=== PATIENT | female | born 1940 | race Caucasian/White ===

== ENCOUNTER 2017-10-24 17:04 | Emergency (ER) | payer MEDICARE ==
[2017-10-24 17:41] LABS: #Basophils 0.1 thou/uL (0.0-0.2); #Eosinphils 0.1 thou/uL (0.0-0.7); #Lymphocytes 2.1 thou/uL (1.20-3.40); #Monocytes 0.7 thou/uL (0.11-0.59); #Neutrophils 6.1 thou/uL (1.40-6.50); %Basophils 0.9 % (0.0-1.0); %Lymphocytes 23.2 % (21.0-51.0); %Monocytes 7.3 % (0.0-10.0); %Neutrophils 67.6 % (42.0-75.0); Hemoglobin 13.2 g/dL (12.0-16.0); Mean Corpuscular HGB CONC 34.7 g/dL (32.0-36.0); Mean Corpuscular Hemoglobin 32.4 pg (27.0-31.0); Mean Corpuscular Volume 93.3 fL (78.0-98.0); Mean Platelet Volume 7.1 fL (7.4-10.4); Platelet Count 215 thou/uL (130-400); RBC Distribution Width 11.5 % (11.5-14.5); Red Blood Cell (RBC) Count 4.07 mill/uL (4.20-5.40)
[2017-10-24 17:59] LABS: ALT (SGPT) 32 U/L (8-55); AST (SGOT) 30 U/L (5-34); Albumin 4.3 g/dL (3.4-4.8); Alkaline Phosphatase 69 U/L (40-150); Anion Gap 14 mmol/L (10-20); BUN (Urea Nitrogen) 23 mg/dL (9.8-20.1); Bilirubin, Total 0.4 mg/dL (0.2-1.2); Calc. Creatinine Clearance 0 mL/min (70-130); Calcium 9.3 mg/dL (7.8-10.44); Carbon Dioxide 25 mmol/L (23-31); Chloride 103 mmol/L (98-107); Estimated GFR-MDRD 62; Globulin 2.6 g/dL (2.4-3.5); Glucose 103 mg/dL (83-110); Potassium 4.7 mmol/L (3.5-5.1); Protein, Total 6.9 g/dL (6.0-8.3); Sodium 137 mmol/L (136-145)
[2017-10-24 18:03] LABS: CKMB 5.5 ng/mL (0-6.6); Troponin I Less than 0.010 ng/mL (< 0.028)
--- NOTE | 2017-10-24 18:06 | RAD ---
CHEST 1 VIEW: Date: 10/24/17 COMPARISON: 12/01/16. HISTORY: Pain. FINDINGS: Hiatal hernia is redemonstrated. Normal cardiac silhouette. Lungs and pleural spaces are clear. Chron ic changes. No consolidation or mass. No pneumothorax or osseous abnormalities. IMPRESSION: No acute cardiopulmonary process. POS: [facility]
[2017-10-24] MEDS ORDERED: Amlodipine 5 MG TAB ONE (18:10)
[2017-10-24] MEDS ORDERED: Hydrochlorothiazide 25 MG TAB PO SCH (18:15)
== END 2017-10-24 20:08 | disposition left against medical advice (07) ==
LOC: ERS 17:04
DX: R07.9 Chest pain, unspecified (principal); E78.5 Hyperlipidemia, unspecified; I10 Essential (primary) hypertension; F32.9 Major depressive disorder, single episode, unspecified; Z79.899 Other long term (current) drug therapy
CPT/HCPCS: 36415; 71045; 80053; 82553; 84484; 85025; 93005

== ENCOUNTER 2018-05-06 00:51 | Emergency (ER) | payer MEDICARE ==
[2018-05-06 01:32] LABS: #Eosinphils 0.2 thou/uL (0.0-0.7); #Lymphocytes 1.6 thou/uL (1.20-3.40); #Monocytes 0.2 thou/uL (0.11-0.59); #Neutrophils 3.7 thou/uL (1.40-6.50); %Basophils 0.6 % (0.0-1.0); %Eosinophils 3.5 % (0.0-10.0); %Lymphocytes 27.4 % (21.0-51.0); %Monocytes 4.1 % (0.0-10.0); %Neutrophils 64.4 % (42.0-75.0); Hemoglobin 11.7 g/dL (12.0-16.0); Mean Corpuscular HGB CONC 32.6 g/dL (32.0-36.0); Mean Corpuscular Hemoglobin 29.8 pg (27.0-31.0); Mean Corpuscular Volume 91.4 fL (78.0-98.0); Mean Platelet Volume 8.3 fL (7.4-10.4); Platelet Count 163 thou/uL (130-400); RBC Distribution Width 12.4 % (11.5-14.5); Red Blood Cell (RBC) Count 3.93 mill/uL (4.20-5.40); White Blood Cell (WBC) Count 5.8 thou/uL (4.8-10.8)
[2018-05-06 01:50] LABS: ALT (SGPT) 15 U/L (8-55); AST (SGOT) 24 U/L (5-34); Albumin 3.7 g/dL (3.4-4.8); Alkaline Phosphatase 60 U/L (40-150); Anion Gap 10 mmol/L (10-20); BUN (Urea Nitrogen) 16 mg/dL (9.8-20.1); Bilirubin, Total Less than 0.2 mg/dL (0.2-1.2); Calc. Creatinine Clearance 0 mL/min (70-130); Calcium 9.3 mg/dL (7.8-10.44); Carbon Dioxide 29 mmol/L (23-31); Chloride 101 mmol/L (98-107); Estimated GFR-MDRD 65; Globulin 2.2 g/dL (2.4-3.5); Glucose 200 mg/dL (83-110); Potassium 3.4 mmol/L (3.5-5.1); Protein, Total 5.9 g/dL (6.0-8.3); Sodium 137 mmol/L (136-145)
--- NOTE | 2018-05-06 08:18 | CT ---
PRELIMINARY REPORT/[facility]/EMERGENCY AFTER HOURS PROCEDURE: EXAM: CT Cervical Spine Without Contrast EXAM DATE/TIME: 05/06/2018 1:57 AM CLINICAL HISTORY: 78 years old, female; Injury or trauma; Fall; Initial encounter; Blunt trauma; Patient HX: F78 presen ts to ed S/P fall. reports he heard PT yell from the other room and found her down, supine, a nd he called ems. Ems reports initally PT only alert to person. They report hypotension 80/60, glucos e 150, normal ecg. PT was C/O pain to occiput and neck. Ems placed PT in c collar. They report pmhx o f chonic low back pain and HTN. TECHNIQUE: Axial computed tomography images of the cervical spine without intravenous contrast. COMPARISON: No relevant prior studies available. FINDINGS: Vertebrae: Prior anterior surgical fusion at C4-5. On axial CT images, no definite acute fracture is visible. Sagittal and coronal reconstructions show no fracture or post traumatic subluxation. Moderate to severe degenerative disc changes and facet joint arthritis at multiple levels. Mild, 1 -- 2 mm of anterior subluxation of C7 relative to T1. No visible fracture. Prominent facet kiana int arthritis at this level is the likely etiology. Discs/Spinal canal/Neural foramina: No definite/significant disc herniation by CT, MRI could be more sensitive if clinically indicated. Lungs: Lung apices appear essentially unremarkable. IMPRESSION: 1. No definite acute fracture or post traumatic subluxation by CT. 2. Other findings discussed above. Thank you for allowing us to participate in the care of your patient. Dictated and Authenticated by: Jayson Simon MD 05/06/2018 3:06 AM Central Time ([place] & [place]) FINAL REPORT CT CERVICAL SPINE: Date: 05/06/18 HISTORY: Fall with neck injury. FINDINGS: I agree with the preliminary report provided by [facility]. No definite acute fracture or subluxation is ev ident. ACDF is seen at C4-5 with solid osseous incorporation of interbody bone graft. There is ankylo sis of C3 to C4. Slight retrolisthesis of C5 on C6. There are laminectomy changes at C5. There is adv anced disc degenerative disease at C6-7 and C7-T1. There is slight anterior translation of C7 on T1. There is bilateral pleural parenchymal scarring. Prevertebral soft tissues are normal appearing. IMPRESSION: No acute abnormality. POS: [facility]
--- NOTE | 2018-05-06 09:45 | CT ---
PRELIMINARY REPORT/[facility]/EMERGENCY AFTER HOURS PROCEDURE: EXAM: CT Head Without Contrast EXAM DATE/TIME: 05/06/2018 1:57 AM CLINICAL HISTORY: 78 years old, female; Injury or trauma; Fall; Initial encounter; Blunt trauma (contusions or hematoma s); Consciousness not specified; Patient HX: F78 presents to ed S/P fall. reports he heard PT yell from the other room and found her down, supine, and he called ems. Ems reports initally PT only alert to person. They report hypotension 80/60, glucose 150, normal ecg. PT was C/O pain to occiput and neck. Ems placed PT in c collar. They report pmhx of chonic low back pain and HTN . TECHNIQUE: Axial computed tomography images of the head/brain without contrast. COMPARISON: No relevant prior studies available. FINDINGS: Brain: No acute intracranial hemorrhage or mass effect. There is mild, relatively symmetrical decreased attenuation in the periventricular white matter, like ly from microvascular disease. No definite acute infarct by CT. MRI could be more sensitive/specific for detection, as clinically di rected. Ventricles: Ventricle size is normal for age. Bones/joints: No definite acute skull fracture. Sinuses: Included paranasal sinuses are essentially clear. Mastoid air cells: No significant acute finding. Vasculature: Vascular calcifications are noted in the internal carotid arteries. IMPRESSION: 1. No acute intracranial bleed or mass effect. 2. Changes of microvascular disease. 3. No definite acute infarct by CT, see above. Thank you for allowing us to participate in the care of your patient. Dictated and Authenticated by: Jayson Simon MD 05/06/2018 3:01 AM Central Time ([place] & [place]) FINAL REPORT CT BRAIN WITHOUT CONTRAST: Date: 05/06/18 IMPRESSION: I agree with the preliminary report provided by [facility]. No definite acute intracranial abnormality is e vident. There is age-appropriate atrophy and mild chronic small vessel white matter ischemic change. Skull is intact. Extracranial soft tissues appear within normal limits. POS: [facility]
== END 2018-05-06 04:18 | disposition home or self-care (01) ==
LOC: ERS 00:51
DX: S06.9X9A Unspecified intracranial injury with loss of consciousness of unspecified duration, initial encounter (principal); S00.03XA Contusion of scalp, initial encounter; E78.5 Hyperlipidemia, unspecified; I10 Essential (primary) hypertension; M19.90 Unspecified osteoarthritis, unspecified site; F32.9 Major depressive disorder, single episode, unspecified; Z79.899 Other long term (current) drug therapy; W19.XXXA Unspecified fall, initial encounter
CPT/HCPCS: 70450; 72125; 80053; 85025; 93005

== ENCOUNTER 2019-07-23 15:58 | Inpatient (IN) | payer MEDICARE, OTHER ==
--- NOTE | 2019-07-23 16:56 | PDOC.FPRHP ---
- History of Present Illness Chief Complaint: Fall and SOB History of Present Illness: This is a 79 yo female with a pmh of HTN, HLD, chronic back pain who presents to the ER from an outside ER with a cc of a fall and new SOB. She states that she started feeling bad 3 days ago. She had some mild SOB as well as an occasional cough. She denies fever, chills, nausea, vomiting, or chest pain. She states the reason she presented to the ER was due to a fall she had today. She states she was going to turn something off across her house when she tripped and fell. She states she hit her head. She denies dizziness or weakness. She denies LOC. In regards to her cough, she reports some yellow sputum. She reports smoking occasionally when she was younger but reports her was a heavy smoker. She denies any recent sick contacts. Of note, her of 59 years this March and she has been feeling quite down since then. ED Course: Azithromycin 500mg Cefepime 2g NS 1L - Allergies/Adverse Reactions Allergies Allergy/AdvReac Type Severity Reaction Status Date / Time No Known Allergies Allergy Verified 07/23/19 19:12 - Home Medications Medication Instructions Recorded Confirmed Type Amlodipine Besylate [amLODIPine 2.5 mg PO DAILY 12/25/14 07/23/19 History Besylate] Aspirin [Ecotrin Low Strength] 81 mg PO DAILY 12/25/14 07/23/19 History Baclofen [Lioresal] 10 mg PO BID 12/25/14 07/23/19 History C,E,Zinc,Copper 24/Om3/Lut/Jarvis 1 cap PO DAILY 12/25/14 07/23/19 History [Ocuvite Adult 50 Plus Softgel] DULoxetine [Cymbalta] 60 mg PO DAILY 12/25/14 07/23/19 History Meloxicam [Mobic] 10 mg PO DAILY 12/25/14 07/23/19 History Multivit-Min/Iron/Folic/Lutein 1 tablet PO DAILY 12/25/14 07/23/19 History [Centrum Silver Women] Rosuvastatin [Crestor] 20 mg PO HS 12/25/14 07/23/19 History Biotin 10,000 mcg PO DAILY 01/16/15 07/23/19 History Calcium Carbonate [Tums] 500 mg PO QID PRN 01/16/15 07/23/19 History Zolpidem Tartrate 10 mg PO HS PRN 01/16/15 07/23/19 History Hydrochlorothiazide 12.5 mg PO QAM 07/10/16 07/23/19 History Loteprednol Etabonate [Lotemax 1 drop EA EYE BID 07/10/16 07/23/19 History 0.5% Ophth Gel] Propylene Glycol/PEG 400 [Systane 1 drop EA EYE BID 07/10/16 07/23/19 History Liquid Gel Eye Drops] Ca/D3/Mag/Zinc/Elis/Jackson/MgBor 1 tablet PO BID 10/26/16 07/23/19 History [Caltrate 600+D3+Minerals Chewable Tablet] Gabapentin 2 tab PO BID 10/26/16 07/23/19 History HYDROcodone Bit/APAP 10/325 [Nemo] 1 tab PO Q6H PRN #0 tab 10/28/16 07/23/19 Rx Solifenacin Succinate [VESIcare] 10 mg PO HS 07/23/19 07/24/19 History Krill/Om-3/DHA/EPA/Phospho/Ast 1 capsule PO DAILY 07/24/19 07/24/19 History [Krill Oil 500 mg Softgel] - History PMHx: HTN, HLD, chronic back pain, PSHx: Total knee replacement, 4 back surgeries, bilateral wrist surgery, hysterectomy FHx: Noncontributory Social: Denies drug or alcohol. Reports small smoking history with large second hand exposure - Review of Systems General: reports: fatigue. denies: fever/chills, weight/appetite/sleep changes , night sweats Eyes: denies: eye pain, vision changes ENT: denies: nasal congestion, rhinorrhea Respiratory: reports: cough, shortness of breath. denies: congestion, exercise intolerance Cardiovascular: denies: chest pain, palpitation, edema Gastrointestinal: denies: nausea, vomiting, diarrhea, constipation, abdominal pain, GI bleeding Genitourinary: denies: incontinence, dysuria Skin: denies: rashes, lesions, jaundice Musculoskeletal: reports: pain (Chronic back pain) Neurological: denies: numbness, syncope, weakness Psychological: reports: depression. denies: anxiety - Vital signs BP: 154/74 HR: 72 RR: 23 Tmax: 98.9 Pox: 99% on 3L nc Wt: 61 kg - Physical Exam Constitutional: NAD, awake, alert and oriented, well developed HEENT: normocephalic and atraumatic, PERRLA, EOMI, grossly normal vision, grossly normal hearing, MMM, other (pt has dry blood on her lip but no laceration is appreciated. No lesions or bruising where she reports hitting her head) Neck: trachea midline, no JVD Chest: no-tender to palpation, no lesions Heart: RRR, normal S1/S2, no murmurs/rubs/gallops, pulses present Lungs: other (Mild rhonci in bases, good air movement) Abdomen: soft, non-tender, bowel sounds present, no masses/distention Musculoskeletal: normal structure, normal tone, ROM grossly normal Neurological: CN II-XII intact Skin: capillary refill <2 seconds Heme/Lymphatic: no unusual bruising or bleeding Psychiatric: normal mood and affect, good judgment and insight FMR H&P: Results - Labs Result Diagrams: 07/24/19 05:40 07/24/19 05:40 Lab results: CBC WBC 12.4 Hgb 12.8 Hct 40.1 Plt 154 D-dimer 0.69 CMP Na 140 K 3.6 Cl 100 HCO3 28 BUN 18 Cr 0.85 Glucose 134 LA 1.1 AST/ALT 35/21 Trop 0.017 BNP 31.7 - EKG Interpretation EKG: NSR, T wave inversion V1-V3, no Qwave prolongation - Radiology Interpretation CT scan - chest Status: report reviewed by me (No PE, Infiltrates in left upper, left lower, and right lower lobes, multiple cystic lesions in liver, present for many years but more numerous and larger, large hiatal hernia) CT scan - head Status: report reviewed by me (No acute intracranial findings) Other Status: report reviewed by me (CT C-spine no fractures present) Chest x-ray Status: report reviewed by me (Patchy inflitrative chagnes, more in the left than right) FMR H&P: A/P - Problem List (1) Pneumonia Current Visit: No Status: Acute Code(s): J18.9 - PNEUMONIA, UNSPECIFIED ORGANISM (2) Chronic pain Current Visit: No Status: Chronic Code(s): G89.29 - OTHER CHRONIC PAIN Qualifiers: Chronic pain type: chronic pain syndrome Qualified Code(s): G89.4 - Chronic pain syndrome (3) Dyslipidemia Current Visit: No Status: Chronic Code(s): E78.5 - HYPERLIPIDEMIA, UNSPECIFIED (4) HTN (hypertension) Current Visit: No Status: Chronic Code(s): I10 - ESSENTIAL (PRIMARY) HYPERTENSION Qualifiers: Hypertension type: essential hypertension Qualified Code(s): I10 - Essential (primary) hypertension - Plan This is a 79 yo female with a pmh of HTN, HLD, chronic back pain Acute hypoxic respiratory failure likely 2/2 PNA 2/2 viral vs. bacterial -Admit to medical -COVID-19 labs pending, precautions in place -Azithromycin and rocephin (07/22) -Hydroxychloroquine started due to CT scan as well as age -Respiratory support -Long second hand smoking risk, albuterol inhaler as needed -Pending procal, ferritin -D dimer slightly elevated -CT chest neg for PE, suggestive of bilateral PNA HTN -Continue home meds HLD -Continue home meds Chronic back pain -Continue home meds Insomnia -Continue home zolpidem Ground level fall -CT brain and neck negative -Up with assist -Consult PT/OT Code: DNAR-DNI, discussed with pt who was decisional at the time of the discussion Prophylaxis: SCDs, holding off on pharmaceutical medications due to fall risk Family: None at bedside Diet: HH Fluids: SL Disposition: DC in 2-3 days PCP: Dr. Rodriguez [facility] Addendum - Attending - Attending Attestation Date/Time: 07/23/19 1700 I personally evaluated the patient and discussed the management with Dr. Duvall I agree with the History, Examination, Assessment and Plan documented above with any addition or exceptions noted below. Exam repeated. Labs, imaging, and EKG reviewed by me.
[2019-07-23 18:54] VITALS: BMI 21.0
[2019-07-23] MEDS ORDERED: Acetaminophen 325 MG TAB PO PRN (19:10)
[2019-07-23] MEDS ORDERED: Calcium Carbonate 500 MG ChewTAB PO PRN (19:10)
[2019-07-23] MEDS ORDERED: PROVENTIL INHALER 6.7 G (200 INHALATIONS) INH PRN (19:10)
[2019-07-23] MEDS ORDERED: Albuterol 200 PUFF (6.7GM INHALER) INH PRN (20:24)
[2019-07-23] MEDS: Hydroxychloroquine Sulfate 200 MG TAB PO SCH (20:38)
[2019-07-23] MEDS: Trospium 20 MG TAB PO SCH (20:38)
[2019-07-23] MEDS: Loteprednol Etabonate 0.5% Ophth Suspension 5 ml Bottle EA EYE SCH (20:39)
[2019-07-23] MEDS: Calcium Carbonate 600 MG + Vit D TAB PO SCH (20:39)
[2019-07-23] MEDS: Gabapentin 300 MG CAP PO SCH (20:39)
[2019-07-23] MEDS: Rosuvastatin 20 MG TAB PO SCH (20:39)
[2019-07-23] MEDS: SYSTANE GEL EYE DROP 10 ML (10 GM) BOT EA EYE SCH (20:39)
[2019-07-23] MEDS: Baclofen 10 MG TAB PO SCH (20:39)
[2019-07-23] MEDS: HYDROcodone/Acetaminophen 10/325 mg Tablet PO PRN (20:41)
[2019-07-23] MEDS ORDERED: Polyethylene Glycol OPTH DROP 15 ML BOT EA EYE SCH (21:00)
[2019-07-23] MEDS: Zolpidem Tartrate 5 MG TAB PO PRN (21:15)
[2019-07-24] MEDS: HYDROcodone/Acetaminophen 10/325 mg Tablet PO PRN ×2 (06:00→11:30)
[2019-07-24 06:08] LABS: #Eosinphils 0.1 thou/uL (0.0-0.7); #Lymphocytes 1.8 thou/uL (1.20-3.40); #Monocytes 0.4 thou/uL (0.11-0.59); #Neutrophils 10.1 thou/uL (1.40-6.50); %Basophils 0.2 % (0.0-1.0); %Eosinophils 0.5 % (0.0-10.0); %Lymphocytes 14.2 % (21.0-51.0); %Monocytes 3.3 % (0.0-10.0); %Neutrophils 81.7 % (42.0-75.0); Hemoglobin 11.5 g/dL (12.0-16.0); Mean Corpuscular HGB CONC 33.1 g/dL (32.0-36.0); Mean Corpuscular Hemoglobin 30.7 pg (27.0-31.0); Mean Corpuscular Volume 92.5 fL (78.0-98.0); Mean Platelet Volume 8.6 fL (7.4-10.4); Platelet Count 136 thou/uL (130-400); RBC Distribution Width 12.4 % (11.5-14.5); Red Blood Cell (RBC) Count 3.76 mill/uL (4.20-5.40); White Blood Cell (WBC) Count 12.3 thou/uL (4.8-10.8)
[2019-07-24 06:28] LABS: ALT (SGPT) 18 U/L (8-55); AST (SGOT) 28 U/L (5-34); Albumin 3.3 g/dL (3.4-4.8); Alkaline Phosphatase 83 U/L (40-110); Anion Gap 11 mmol/L (10-20); BUN (Urea Nitrogen) 13 mg/dL (9.8-20.1); Bilirubin, Total 0.6 mg/dL (0.2-1.2); Calc. Creatinine Clearance 64 mL/min (70-130); Calcium 9.1 mg/dL (7.8-10.44); Carbon Dioxide 28 mmol/L (23-31); Chloride 102 mmol/L (98-107); Estimated GFR-MDRD 85; Globulin 2.4 g/dL (2.4-3.5); Glucose 87 mg/dL (83-110); Potassium 3.7 mmol/L (3.5-5.1); Protein, Total 5.7 g/dL (6.0-8.3); Sodium 137 mmol/L (136-145)
--- NOTE | 2019-07-24 07:41 | PDOC.FM ---
- Subjective Subjective: Per nursing, she did well overnight. Today, she reports her breathing is better. She has been coughing some but denies fever and chills. - Objective MAR Reviewed: Yes Vital Signs & Weight: Vital Signs (12 hours) Temp Pulse Resp BP Pulse Ox 07/24/19 04:47 98.4 F 73 18 123/77 93 L 07/23/19 23:45 98.6 F 78 18 126/78 95 07/23/19 20:43 99.3 F 73 18 154/72 H 96 Weight Weight 59.194 kg I&O: 07/23/19 07/24/19 07/25/19 06:59 06:59 06:59 Intake Total 610 Balance 610 Result Diagrams: 07/24/19 05:40 07/24/19 05:40 Phys Exam - Physical Examination Constitutional: NAD HEENT: moist MMs Respiratory: no wheezing Basilar rhonchi Cardiovascular: RRR, no significant murmur Gastrointestinal: soft, non-tender, no distention, positive bowel sounds Musculoskeletal: no edema Neurological: moves all 4 limbs Psychiatric: A&O x 3 Skin: cap refill <2 seconds Dx/Plan (1) Pneumonia Code(s): J18.9 - PNEUMONIA, UNSPECIFIED ORGANISM Status: Acute (2) Chronic pain Code(s): G89.29 - OTHER CHRONIC PAIN Status: Chronic Qualifiers: Chronic pain type: chronic pain syndrome Qualified Code(s): G89.4 - Chronic pain syndrome (3) Dyslipidemia Code(s): E78.5 - HYPERLIPIDEMIA, UNSPECIFIED Status: Chronic (4) HTN (hypertension) Code(s): I10 - ESSENTIAL (PRIMARY) HYPERTENSION Status: Chronic Qualifiers: Hypertension type: essential hypertension Qualified Code(s): I10 - Essential (primary) hypertension - Plan Plan: This is a 79 yo female with a pmh of HTN, HLD, chronic back pain Acute hypoxic respiratory failure likely 2/2 PNA 2/2 viral vs. bacterial -Admit to medical -COVID-19 labs pending, precautions in place -Azithromycin and rocephin (07/22) -Hydroxychloroquine started due to CT scan as well as age -Respiratory support -Long second hand smoking risk, albuterol inhaler as needed -Procal suggestive of bacterial pna, ferritin WNL -D dimer slightly elevated -CT chest neg for PE, suggestive of bilateral PNA HTN -Continue home meds HLD -Continue home meds Chronic back pain -Continue home meds Insomnia -Continue home zolpidem Ground level fall -CT brain and neck negative -Up with assist -Consult PT/OT Addendum - Attending - Attending Attestation Date/Time: 07/24/19 7005 I personally evaluated the patient and discussed the management with Dr. Duvall I agree with the History, Examination, Assessment and Plan documented above with any addition or exceptions noted below. Will attempt to wean oxygen. Repeat EKG tomorrow if COVID has not resulted to monitor QT interval.
[2019-07-24] MEDS: Gabapentin 300 MG CAP PO SCH ×2 (07:45→22:30)
[2019-07-24] MEDS: Vit A,C & E/Lutein/Minerals Tablet PO SCH (07:46)
[2019-07-24] MEDS: Calcium Carbonate 600 MG + Vit D TAB PO SCH ×2 (07:49→22:30)
[2019-07-24] MEDS: Trospium 20 MG TAB PO SCH ×2 (07:49→22:30)
[2019-07-24] MEDS: Aspirin 81 mg Enteric Coated Tablet PO SCH (07:49)
[2019-07-24] MEDS: Azithromycin 250 MG TAB PO SCH (07:49)
[2019-07-24] MEDS: Multivitamin W/ Minerals 1 TAB PO SCH (07:50)
[2019-07-24] MEDS: DULoxetine 60 MG CAP PO SCH (07:50)
[2019-07-24] MEDS: Hydroxychloroquine Sulfate 200 MG TAB PO SCH ×2 (07:51→22:30)
[2019-07-24] MEDS: Hydrochlorothiazide 25 MG TAB PO SCH ×2 (07:51→11:42)
[2019-07-24] MEDS: Baclofen 10 MG TAB PO SCH ×2 (07:51→22:30)
[2019-07-24] MEDS: Meloxicam 7.5 MG TAB PO SCH (08:11)
[2019-07-24] MEDS: SYSTANE GEL EYE DROP 10 ML (10 GM) BOT EA EYE SCH ×2 (08:28→22:30)
[2019-07-24] MEDS: Loteprednol Etabonate 0.5% Ophth Suspension 5 ml Bottle EA EYE SCH ×2 (08:28→22:30)
[2019-07-24] MEDS ORDERED: PHOSPHO PO SCH (09:00)
[2019-07-24] MEDS ORDERED: EPA PO SCH (09:00)
[2019-07-24] MEDS ORDERED: [UNRECOGNIZED DRUG - OTHER] PO SCH (09:00)
[2019-07-24] MEDS ORDERED: KRILL PO SCH (09:00)
[2019-07-24] MEDS ORDERED: AST PO SCH (09:00)
[2019-07-24] MEDS ORDERED: DHA PO SCH (09:00)
[2019-07-24] MEDS ORDERED: [Biotin] 10,000 MCG PO SCH (09:00)
[2019-07-24 09:57] LABS: Magnesium 1.9 mg/dL (1.6-2.6)
[2019-07-24] MEDS: Amlodipine 5 MG TAB PO SCH (11:41)
[2019-07-24] MEDS: HYDROcodone/Acetaminophen 10/325 mg Tablet PO SCH ×2 (11:56→17:16)
[2019-07-24] MEDS: cefTRIAXone\\ROCEPHIN 1 GM in Sodium Chloride 0.9% 100 ML IVPB SCH (15:23)
[2019-07-24] MEDS: Potassium Chloride 20 MEQ TAB PO SCH (17:07)
--- NOTE | 2019-07-24 17:43 | EKG ---
Test Reason : Blood Pressure : / mmHG Vent. Rate : 064 BPM Atrial Rate : 064 BPM P-R Int : 170 ms QRS Dur : 088 ms QT Int : 408 ms P-R-T Axes : 059 013 063 degrees QTc Int : 420 ms Normal sinus rhythm Normal ECG When compared with ECG of 06-MAY-2018 01:22, Premature atrial complexes are no longer Present T wave inversion no longer evident in Anterior leads Confirmed by DR. Brian OLIVARES ([id number]) on 07/24/2019 5:42:50 PM Referred By: JESSICA urrutia Confirmed By:DR. Brian OLIVARES
[2019-07-24] MEDS: Rosuvastatin 20 MG TAB PO SCH (22:30)
[2019-07-24] MEDS: Zolpidem Tartrate 5 MG TAB PO PRN (22:30)
[2019-07-25] MEDS: HYDROcodone/Acetaminophen 10/325 mg Tablet PO SCH ×5 (00:52→23:57)
[2019-07-25 05:22] LABS: #Basophils 0.1 thou/uL (0.0-0.2); #Eosinphils 0.1 thou/uL (0.0-0.7); #Lymphocytes 1.7 thou/uL (1.20-3.40); #Monocytes 0.3 thou/uL (0.11-0.59); %Basophils 0.7 % (0.0-1.0); %Eosinophils 1.8 % (0.0-10.0); %Lymphocytes 23.9 % (21.0-51.0); %Monocytes 3.5 % (0.0-10.0); %Neutrophils 70.1 % (42.0-75.0); Hemoglobin 11.4 g/dL (12.0-16.0); Mean Corpuscular HGB CONC 31.4 g/dL (32.0-36.0); Mean Corpuscular Volume 92.5 fL (78.0-98.0); Mean Platelet Volume 8.7 fL (7.4-10.4); Platelet Count 144 thou/uL (130-400); RBC Distribution Width 12.2 % (11.5-14.5); Red Blood Cell (RBC) Count 3.93 mill/uL (4.20-5.40); White Blood Cell (WBC) Count 7.2 thou/uL (4.8-10.8)
[2019-07-25 05:42] LABS: ALT (SGPT) 22 U/L (8-55); AST (SGOT) 29 U/L (5-34); Albumin 3.5 g/dL (3.4-4.8); Alkaline Phosphatase 86 U/L (40-110); Anion Gap 13 mmol/L (10-20); BUN (Urea Nitrogen) 14 mg/dL (9.8-20.1); Bilirubin, Total 0.2 mg/dL (0.2-1.2); Calc. Creatinine Clearance 62 mL/min (70-130); Calcium 9.4 mg/dL (7.8-10.44); Carbon Dioxide 24 mmol/L (23-31); Chloride 103 mmol/L (98-107); Estimated GFR-MDRD 82; Globulin 2.5 g/dL (2.4-3.5); Glucose 91 mg/dL (83-110); Magnesium 1.9 mg/dL (1.6-2.6); Potassium 4.1 mmol/L (3.5-5.1); Sodium 136 mmol/L (136-145)
[2019-07-25] MEDS ORDERED: Magnesium 2 GM/50 ML 2 GM in Premix Bag 1 BAG IVPB SCH (07:15)
--- NOTE | 2019-07-25 07:16 | PDOC.FM ---
- Subjective Subjective: Pt states she is doing well today. She has been up to the bathroom and has not been overly SOB. She states states she stays at home alone and has been self- quarantine. - Objective MAR Reviewed: Yes Vital Signs & Weight: Vital Signs (12 hours) Temp Pulse Resp BP BP Pulse Ox 07/25/19 04:51 94 L 07/25/19 04:40 98.3 F 59 L 16 125/75 96 07/25/19 00:55 98.1 F 67 16 132/79 97 07/24/19 21:45 98.2 F 64 20 131/67 94 L 07/24/19 20:00 94 L Weight Weight 59.194 kg I&O: 07/24/19 07/25/19 07/26/19 06:59 06:59 06:59 Intake Total 610 1220 Balance 610 1220 Result Diagrams: 07/25/19 05:05 07/25/19 05:05 Phys Exam - Physical Examination Constitutional: NAD HEENT: moist MMs Neck: no JVD Improved air movement in all lung monson Cardiovascular: RRR, no significant murmur Gastrointestinal: soft, no distention, positive bowel sounds Musculoskeletal: pulses present Neurological: moves all 4 limbs Psychiatric: A&O x 3 Skin: cap refill <2 seconds Dx/Plan (1) Pneumonia Code(s): J18.9 - PNEUMONIA, UNSPECIFIED ORGANISM Status: Acute (2) Chronic pain Code(s): G89.29 - OTHER CHRONIC PAIN Status: Chronic Qualifiers: Chronic pain type: chronic pain syndrome Qualified Code(s): G89.4 - Chronic pain syndrome (3) Dyslipidemia Code(s): E78.5 - HYPERLIPIDEMIA, UNSPECIFIED Status: Chronic (4) HTN (hypertension) Code(s): I10 - ESSENTIAL (PRIMARY) HYPERTENSION Status: Chronic Qualifiers: Hypertension type: essential hypertension Qualified Code(s): I10 - Essential (primary) hypertension - Plan Plan: This is a 79 yo female with a pmh of HTN, HLD, chronic back pain Acute hypoxic respiratory failure likely 2/2 PNA 2/2 viral vs. bacterial -Admit to medical -COVID-19 labs pending, precautions in place -Azithromycin and rocephin (07/22) -Hydroxychloroquine started due to CT scan as well as age -Respiratory support, close to weaned -Long second hand smoking risk, albuterol inhaler as needed -Procal suggestive of bacterial pna, ferritin WNL -D dimer slightly elevated -CT chest neg for PE, suggestive of bilateral PNA -Repeating procal today Borderline QTc -EKG yesterday shows improved QTc, replacing mag this AM, K appears appropriate HTN -Continue home meds HLD -Continue home meds Chronic back pain -Continue home meds Insomnia -Continue home zolpidem Ground level fall -CT brain and neck negative -Up with assist -Consult PT/OT Addendum - Attending - Attending Attestation Date/Time: 07/25/19 0406 I personally evaluated the patient and discussed the management with Dr. Duvall. I agree with the History, Examination, Assessment and Plan documented above with any addition or exceptions noted below. Patient was standing/walking around room this morning. On my examination, SpO2 was 92-94 on RA. COVID pending. Will monitor this afternoon. Could possibly discharge today but most likely tomorrow. COVID pending.
[2019-07-25] MEDS: Hydroxychloroquine Sulfate 200 MG TAB PO SCH ×2 (08:39→21:19)
[2019-07-25] MEDS: DULoxetine 60 MG CAP PO SCH (08:39)
[2019-07-25] MEDS: Aspirin 81 mg Enteric Coated Tablet PO SCH (08:39)
[2019-07-25] MEDS: Calcium Carbonate 600 MG + Vit D TAB PO SCH ×2 (08:39→21:18)
[2019-07-25] MEDS: Multivitamin W/ Minerals 1 TAB PO SCH (08:39)
[2019-07-25] MEDS: Vit A,C & E/Lutein/Minerals Tablet PO SCH (08:39)
[2019-07-25] MEDS: Potassium Chloride 20 MEQ TAB PO SCH ×2 (08:40→16:42)
[2019-07-25] MEDS: Hydrochlorothiazide 25 MG TAB PO SCH (08:40)
[2019-07-25] MEDS: Baclofen 10 MG TAB PO SCH ×2 (08:40→21:18)
[2019-07-25] MEDS: Azithromycin 250 MG TAB PO SCH (08:41)
[2019-07-25] MEDS: Trospium 20 MG TAB PO SCH ×2 (08:41→21:19)
[2019-07-25] MEDS: Amlodipine 5 MG TAB PO SCH (08:41)
[2019-07-25] MEDS: Gabapentin 300 MG CAP PO SCH ×2 (08:44→21:19)
[2019-07-25] MEDS: Meloxicam 7.5 MG TAB PO SCH (08:46)
[2019-07-25] MEDS: Loteprednol Etabonate 0.5% Ophth Suspension 5 ml Bottle EA EYE SCH ×2 (09:28→21:25)
[2019-07-25] MEDS: SYSTANE GEL EYE DROP 10 ML (10 GM) BOT EA EYE SCH ×2 (09:29→21:25)
[2019-07-25] MEDS: cefTRIAXone\\ROCEPHIN 1 GM in Sodium Chloride 0.9% 100 ML IVPB SCH (16:40)
[2019-07-25] MEDS: Rosuvastatin 20 MG TAB PO SCH (21:18)
[2019-07-26 05:26] LABS: #Basophils 0.1 thou/uL (0.0-0.2); #Eosinphils 0.2 thou/uL (0.0-0.7); #Lymphocytes 1.9 thou/uL (1.20-3.40); #Monocytes 0.5 thou/uL (0.11-0.59); #Neutrophils 5.7 thou/uL (1.40-6.50); %Basophils 0.6 % (0.0-1.0); %Eosinophils 2.9 % (0.0-10.0); %Lymphocytes 22.9 % (21.0-51.0); %Monocytes 5.7 % (0.0-10.0); %Neutrophils 67.9 % (42.0-75.0); Hemoglobin 11.7 g/dL (12.0-16.0); Mean Corpuscular HGB CONC 32.6 g/dL (32.0-36.0); Mean Corpuscular Hemoglobin 30.1 pg (27.0-31.0); Mean Corpuscular Volume 92.5 fL (78.0-98.0); Mean Platelet Volume 8.6 fL (7.4-10.4); Platelet Count 172 thou/uL (130-400); RBC Distribution Width 12.2 % (11.5-14.5); Red Blood Cell (RBC) Count 3.89 mill/uL (4.20-5.40); White Blood Cell (WBC) Count 8.4 thou/uL (4.8-10.8)
[2019-07-26 05:50] LABS: ALT (SGPT) 21 U/L (8-55); AST (SGOT) 26 U/L (5-34); Albumin 3.5 g/dL (3.4-4.8); Alkaline Phosphatase 79 U/L (40-110); Anion Gap 12 mmol/L (10-20); BUN (Urea Nitrogen) 14 mg/dL (9.8-20.1); Bilirubin, Total 0.2 mg/dL (0.2-1.2); Calc. Creatinine Clearance 58 mL/min (70-130); Calcium 9.7 mg/dL (7.8-10.44); Carbon Dioxide 29 mmol/L (23-31); Chloride 103 mmol/L (98-107); Estimated GFR-MDRD 77; Globulin 2.6 g/dL (2.4-3.5); Glucose 92 mg/dL (83-110); Potassium 3.9 mmol/L (3.5-5.1); Protein, Total 6.1 g/dL (6.0-8.3); Sodium 140 mmol/L (136-145)
[2019-07-26] MEDS: HYDROcodone/Acetaminophen 10/325 mg Tablet PO SCH ×2 (05:52→12:26)
--- NOTE | 2019-07-26 06:49 | PDOC.FM ---
- Subjective Subjective: Pt states she is feeling much better today. She denies cough, SOB, or dyspnea with movement around her room. She states she is ready to go home. - Objective MAR Reviewed: Yes Vital Signs & Weight: Vital Signs (12 hours) Temp Pulse Resp BP Pulse Ox 07/26/19 05:58 98.3 F 07/25/19 23:57 98 F 07/25/19 21:00 97.9 F 63 18 154/95 H 94 L 07/25/19 20:00 94 L Weight Weight 59.194 kg I&O: 07/24/19 07/25/19 07/26/19 06:59 06:59 06:59 Intake Total 610 1220 1520 Balance 610 1220 1520 Result Diagrams: 07/26/19 05:02 07/26/19 05:02 Phys Exam - Physical Examination Constitutional: NAD HEENT: moist MMs Respiratory: no wheezing, clear to auscultation bilateral Cardiovascular: RRR, no significant murmur Gastrointestinal: soft, non-tender, no distention, positive bowel sounds Musculoskeletal: no edema, pulses present Neurological: moves all 4 limbs Psychiatric: A&O x 3 Skin: cap refill <2 seconds Dx/Plan (1) Pneumonia Code(s): J18.9 - PNEUMONIA, UNSPECIFIED ORGANISM Status: Acute (2) Chronic pain Code(s): G89.29 - OTHER CHRONIC PAIN Status: Chronic Qualifiers: Chronic pain type: chronic pain syndrome Qualified Code(s): G89.4 - Chronic pain syndrome (3) Dyslipidemia Code(s): E78.5 - HYPERLIPIDEMIA, UNSPECIFIED Status: Chronic (4) HTN (hypertension) Code(s): I10 - ESSENTIAL (PRIMARY) HYPERTENSION Status: Chronic Qualifiers: Hypertension type: essential hypertension Qualified Code(s): I10 - Essential (primary) hypertension - Plan Plan: This is a 79 yo female with a pmh of HTN, HLD, chronic back pain Acute hypoxic respiratory failure likely 2/2 PNA 2/2 viral vs. bacterial -Admit to medical -COVID-19 negative -Azithromycin and rocephin (07/22) -Hydroxychloroquine stopped -Long second hand smoking risk, albuterol inhaler as needed -Procal suggestive of bacterial pna, ferritin WNL Borderline QTc -Off Hydroxychloroquine HTN -Continue home meds HLD -Continue home meds Chronic back pain -Continue home meds Insomnia -Continue home zolpidem Ground level fall -CT brain and neck negative -Up with assist -Consult PT/OT Addendum - Attending - Attending Attestation Date/Time: 07/26/19 7676 I personally evaluated the patient and discussed the management with Dr. Duvall. I agree with the History, Examination, Assessment and Plan documented above with any addition or exceptions noted below. Failed RA walking trial. Still requiring oxygen. Has extensive history of 2nd hand smoke exposure so likely underlying COPD. Viral pneumonia resolved. Will arrange home oxygen and discharge.
[2019-07-26] MEDS: Potassium Chloride 20 MEQ TAB PO SCH (08:25)
[2019-07-26] MEDS: DULoxetine 60 MG CAP PO SCH (08:25)
[2019-07-26] MEDS: Gabapentin 300 MG CAP PO SCH (08:26)
[2019-07-26] MEDS: Azithromycin 250 MG TAB PO SCH (08:26)
[2019-07-26] MEDS: Baclofen 10 MG TAB PO SCH (08:26)
[2019-07-26] MEDS: Amlodipine 5 MG TAB PO SCH (08:27)
[2019-07-26] MEDS: Calcium Carbonate 600 MG + Vit D TAB PO SCH (08:31)
[2019-07-26] MEDS: Vit A,C & E/Lutein/Minerals Tablet PO SCH (08:31)
[2019-07-26] MEDS: Hydrochlorothiazide 25 MG TAB PO SCH (08:31)
[2019-07-26] MEDS: Trospium 20 MG TAB PO SCH (08:32)
[2019-07-26] MEDS: Aspirin 81 mg Enteric Coated Tablet PO SCH (08:32)
[2019-07-26] MEDS: Multivitamin W/ Minerals 1 TAB PO SCH (08:32)
[2019-07-26] MEDS: Meloxicam 7.5 MG TAB PO SCH (08:32)
[2019-07-26] MEDS: SYSTANE GEL EYE DROP 10 ML (10 GM) BOT EA EYE SCH (08:34)
[2019-07-26] MEDS: Loteprednol Etabonate 0.5% Ophth Suspension 5 ml Bottle EA EYE SCH (08:34)
[2019-07-26] MEDS: cefTRIAXone\\ROCEPHIN 1 GM in Sodium Chloride 0.9% 100 ML IVPB SCH (13:59)
[2019-07-26 14:36] VITALS: BP 132/77; TEMP 98.6
--- NOTE | 2019-07-27 13:11 | DIS ---
DATE OF ADMISSION: 07/23/2019 DATE OF DISCHARGE: 07/26/2019 ADMITTING ATTENDING: Yaakov Cornell MD DISCHARGING ATTENDING: Yaakov Cornell MD RESIDENT: Ramu Duvall DO CONSULTS: None. PROCEDURES PERFORMED: CT angiogram of the chest showing no evidence of pulmonary embolism, infiltrates mostly in the upper lower left and right lower lobes consistent with pneumonia, multicystic lesions of the liver, present for years, maybe numerous in size and number, large hiatal hernia, CT of the C-spine showing extensive postoperative and degenerative changes. Of note, no change in appearance of the spine compared to 2019 study. Portable chest x-ray shows patchy infiltrate changes more in the left lung than the right, more central than peripheral. CT brain shows chronic changes, but no acute intracranial findings. PRIMARY DIAGNOSIS: Acute hypoxic respiratory failure likely secondary to pneumonia exacerbated by presumptive chronic obstructive pulmonary disease. SECONDARY DIAGNOSES: Hypertension, hyperlipidemia, chronic back pain, insomnia. DISCHARGE MEDICATIONS: 1. Prednisone 40 mg p.o. daily for 5 days. 2. Azithromycin 250 mg p.o. daily for two days. 3. Amlodipine 2.5 mg p.o. daily. 4. Aspirin 81 mg p.o. daily. 5. Baclofen 10 mg p.o. b.i.d. 6. Biotin 17472 mcg p.o. daily. 7. 50+ soft gel. 8. Caltrate 600+ D3 plus minerals chewable tablets. 9. Calcium carbonate 500 mg p.o. q.i.d. 10. Duloxetine 60 mg p.o. daily. 11. Gabapentin 600 mg p.o. b.i.d. 12. Hydrochlorothiazide 12.5 mg p.o. daily. 13. [place] 10 mg p.o. q.6 hours p.r.n. pain. 14. Krill oil one capsule p.o. daily. 15. Lotemax 0.5% ortho gel one drop each eye b.i.d. 16. Meloxicam 10 mg p.o. daily. 17. Multivitamin one p.o. daily. 18. Systane liquid gel eye drops, one drop each eye b.i.d. 19. Rosuvastatin 20 mg p.o. at bedtime. 20. VESIcare 10 mg p.o. at bedtime. 21. Zolpidem 10 mg p.o. at bedtime. DISCONTINUED MEDICATIONS: None. BRIEF HISTORY OF PRESENT ILLNESS/HOSPITAL COURSE: This 79-year-old female with past medical history as above, who presented to the ER from an outside ER with chief complaint of fall and new shortness of breath. She states that she has been feeling bad for the last three days, had some mild SOB, as well as occasional cough. She denies fever, chills, nausea, vomiting, or chest pain. She states that she has been undergoing isolation as instructed and had not had any sick contacts. She earlier today was trying to turn something off her house when she got out of bed and had mechanical ground level fall. Denies LOC, but did bump her left head. The patient reports occasional smoking when she was younger, but states that her of 59 years of lung cancer due to long-term smoking given that she had extensive secondhand smoke exposure. The patient was admitted due to shortness of breath and oxygen requirement to the hospital and at that time was COVID rule out due to her symptoms and her x-ray. COVID was found to be negative. The patient presumptively had a viral pneumonia respiratory panel that was negative. The patient was still treated for COPD exacerbation with steroids and antibiotics and breathing treatments. While patient was in the hospital, the patient's oxygen requirement improved, however, was discharged on oxygen. I treated COPD exacerbation. At the time of discharge, the patient's pneumonia was resolved. DISCHARGE PLAN: Follow up with her primary care doctor and plan is to isolate after this. DISPOSITION: Stable. DISCHARGE INSTRUCTIONS: 1. Location: Home. 2. Diet: Heart healthy. 3. Activity: As tolerated. 4. Followup: Follow up with PCP, Dr. Rodriguez at [facility] in 1 to 2 weeks. TIME SPENT: Greater than 35 minutes was spent in discharge planning for this patient. Job ID: [id number]
== END 2019-07-26 14:57 | disposition home or self-care (01) | DRG 193 ==
LOC: ERS 15:58 → T4-A 16:34 → ERHOLD 17:31 → T4-A 18:48
PROVIDERS: ADMIT Family Medicine; ATTEND Family Medicine
PROC: 8E0ZXY6 Isolation (ICD-10-PCS; principal; 2019-07-23)
DX: J12.9 Viral pneumonia, unspecified (principal); J96.01 Acute respiratory failure with hypoxia; J44.0 Chronic obstructive pulmonary disease with (acute) lower respiratory infection; J44.1 Chronic obstructive pulmonary disease with (acute) exacerbation; I10 Essential (primary) hypertension; Z66 Do not resuscitate; E78.5 Hyperlipidemia, unspecified; M54.9 Dorsalgia, unspecified; Z96.659 Presence of unspecified artificial knee joint; G89.4 Chronic pain syndrome; G47.00 Insomnia, unspecified; I45.81 Long QT syndrome; Z20.828 Contact with and (suspected) exposure to other viral communicable diseases; Z90.710 Acquired absence of both cervix and uterus; Z87.891 Personal history of nicotine dependence; Z91.81 History of falling
CPT/HCPCS: 36415; 80053; 82728; 83735; 84145; 85025; 93005; 93010; 99285; J0696; J3475; J3490

== ENCOUNTER 2020-01-26 23:08 | Inpatient (IN) | payer MEDICARE, OTHER ==
[~2020-01-26 23:08] MED LIST: Iopamidol-370 76% 500 ML 1 ML ONE
[2020-01-27 00:09] LABS: #Eosinphils 0.1 thou/uL (0.0-0.7); #Lymphocytes 1.5 thou/uL (1.20-3.40); #Monocytes 0.4 thou/uL (0.11-0.59); #Neutrophils 7.3 thou/uL (1.40-6.50); %Basophils 0.5 % (0.0-1.0); %Lymphocytes 16.2 % (21.0-51.0); %Monocytes 4.6 % (0.0-10.0); %Neutrophils 77.7 % (42.0-75.0); Hemoglobin 11.4 g/dL (12.0-16.0); Mean Corpuscular HGB CONC 34.2 g/dL (32.0-36.0); Mean Corpuscular Volume 93.4 fL (78.0-98.0); Platelet Count 143 thou/uL (130-400); RBC Distribution Width 12.5 % (11.5-14.5); Red Blood Cell (RBC) Count 3.55 mill/uL (4.20-5.40); White Blood Cell (WBC) Count 9.4 thou/uL (4.8-10.8)
[2020-01-27 00:32] LABS: ALT (SGPT) 41 U/L (8-55); AST (SGOT) 37 U/L (5-34); Albumin 3.5 g/dL (3.4-4.8); Alkaline Phosphatase 78 U/L (40-110); Anion Gap 12 mmol/L (10-20); BUN (Urea Nitrogen) 17 mg/dL (9.8-20.1); Bilirubin, Total 0.5 mg/dL (0.2-1.2); Calc. Creatinine Clearance 0 mL/min (70-130); Calcium 8.5 mg/dL (7.8-10.44); Carbon Dioxide 24 mmol/L (23-31); Chloride 103 mmol/L (98-107); Estimated GFR-MDRD 65; Globulin 2.3 g/dL (2.4-3.5); Glucose 109 mg/dL (83-110); Protein, Total 5.8 g/dL (6.0-8.3); Sodium 136 mmol/L (136-145)
[2020-01-27 00:35] LABS: Potassium 2.9 mmol/L (3.5-5.1)
[2020-01-27 02:20] LABS: Bilirubin Negative (Negative); Blood, Urine Negative (Negative); Clarity Clear (Clear); Glucose, Urine (Dipstick) Normal (Negative); Ketone, Urine Negative (Negative); Leukocyte Negative Leu/uL (Negative); Nitrite Negative (Negative); Protein, Urine (Dipstick) Negative (Neg-Trace); Specific Gravity, Urine 1.008 (1.002-1.036); Urobilinogen Normal mg/dL (Less than 2); pH, Urine 6.5 (5.0-9.0)
[2020-01-27] MEDS ORDERED: cefTRIAXone\\ROCEPHIN 2 GM VIAL ONE (02:46)
[2020-01-27] MEDS ORDERED: Pot Chloride/Pot Bicarb/Cit Ac 25 mEq Effervescent Tablet ONE (04:36)
--- NOTE | 2020-01-27 04:56 | HP ---
REQUESTING PHYSICIAN: Dr. Hagen. ATTENDING SURGEON: Johan Combs MD CONSULTATIONS: Neurosurgery, Dr. Sanchez. HISTORY OF PRESENT ILLNESS: The patient is a 79-year-old woman, who was brought to the emergency room by ground EMS after having slipped while playing with her grandchildren. According to her daughter, the patient lost her balance and slid down the wall. Daughter reports that the patient had taken her Ambien and hydrocodone prior to this and then, went to the bathroom, then she was found there. She called 911. She was brought to the emergency department where she underwent evaluation and examination, and was noted to have a skull fracture. The patient denied any pain and upon further investigation, it was discovered that the patient has been having falls and this may actually have occurred 1 to 2 weeks earlier. After discussion with Neurosurgery, they asked that the patient be admitted and they will evaluate her and we will also discuss placement for the patient. The patient denied any loss of consciousness. The daughter says that she is unsure because it was unwitnessed. The patient's initial vital signs by EMS or a blood pressure of 60s that went up with no medical interventions. ALLERGIES: NONE. CURRENT MEDICATIONS: 1. Amlodipine. 2. Hydrochlorothiazide. 3. Duloxetine. 4. Gabapentin. 5. Meloxicam. 6. Baclofen. 7. Baby aspirin. 8. Multivitamins. 9. Lotemax ophthalmic. 10. Crestor. 11. Hydrocodone. 12. VESIcare. 13. Ambien. PAST MEDICAL HISTORY: Hypertension, hypercholesterolemia, chronic back pain, arthritis, bladder spasms, depression. PAST SURGICAL HISTORY: Bilateral knee replacements, four back surgeries, bilateral carpal tunnel surgery, hysterectomy, tonsillectomy, and right rotator cuff repair. SOCIAL HISTORY: The patient lives independently at home with family nearby. She smoked cigarettes in the past, quit smoking greater than 10 years ago. She denies drug or alcohol use. REVIEW OF SYSTEMS: A 10-point review of systems is negative as otherwise stated. PHYSICAL EXAMINATION: VITAL SIGNS: Blood pressure 123/62, heart rate 68, respirations 18, oxygen saturation is 98% on room air, and temperature is 97.8. GENERAL: The patient is resting comfortably in bed. At the time of my visit, she was sound asleep. She did awaken with loud verbal stimuli in a gentle touch to the shoulder. Once awake, she was appropriate. She is a fairly good historian. She adamantly denies having any pain or headache or neck pain at this time. She states that her fall tonight was just hers sliding down the wall, but she had a fall two weeks ago at home, which resulted in bruising in her face. Her Rebekah Coma Scale currently is 14, -1 for eye opening. HEENT: Head is normocephalic. Eyes, extraocular motion intact. PERRLA bilaterally. There does appear to be some resolving residual ecchymosis on her forehead, which will be consistent with her story. Nose is atraumatic without discharge. Ears are atraumatic without discharge. Oropharynx is clear. NECK: Nontender. Trachea is midline with no JVD. The patient has no tenderness to palpation to the base of her skull or her neck. She also denies pain to palpation to her maxillary sinus or her nose. CHEST: Clear to auscultation with good inspiratory and expiratory effort. HEART: Regular rate and rhythm. ABDOMEN: Soft, nontender with active bowel sounds. EXTREMITIES: Neurovascularly intact x4. BACK: Atraumatic and nontender. LABORATORY FINDINGS: White blood cell count 9.4, hemoglobin 11.4, hematocrit 33.2, platelets 143. Sodium 136, potassium 2.9, chloride 103, CO2 of 24, BUN 17, creatinine 0.85, glucose 109. LFTs are unremarkable. Troponin is 0.013. Urinalysis is unremarkable. RADIOGRAPHIC REPORT: CT of the head and C-spine without contrast show a subtle foci of emphysema within the right carotid canal within the right greater than left cavernous sinus, and at the posterior aspect of the orbit. Additionally, scattered foci of subcutaneous emphysema are appreciated within the right meat and seafood manager space. Above these foci of air may be iatrogenic, particularly, in the setting of scattered foci of air within the venous structures of the neck cannot exclude a skull base injury and/or vascular injury. There are no acute cerebral findings. There is advanced multilevel degenerative disk and facet disease of the C-spine without acute findings. There is pulmonary vascular congestion noted. CT angio was also unremarkable. Per ER physician, we are waiting for the report to be faxed to us. She was notified by Radiology. ASSESSMENT AND PLAN: 1. Status post fall. 2. Skull base fractures with questionable acuity. 3. History of hypotension, resolved. PLAN: Plan will be to admit the patient to the surgical floor. We will discuss with the family placement of the patient and the need for her medications, specifically her home medications to be re-evaluated. Per the ER physician, she had this discussion with the family also and they do have concerns that the patient is not taking her medications properly and this is contributing to her falls at home alone, they are agreeable to explore placement options. Neurosurgery will evaluate the patient this morning and we appreciate their any recommendations that they give. The patient will have pulmonary toilet, gastritis, mechanical VTE prophylaxis. The evaluation, examination, laboratory, and radiographic findings will be discussed with Dr. Combs after this dictation. Job ID: [id number]
[2020-01-27] MEDS ORDERED: Ondansetron ODT 4 MG TAB PO PRN (05:24)
[2020-01-27] MEDS ORDERED: Ondansetron PF 4 MG/2 ML Vial IVP PRN (05:24)
[2020-01-27] MEDS ORDERED: Dextrose 50% Abboject 50 ML SYRINGE SLOW IVP PRN (05:24)
[2020-01-27] MEDS ORDERED: Dextrose 5% in Water 1,000 ML IV PRN (05:24)
[2020-01-27 06:03] LABS: Magnesium 1.8 mg/dL (1.6-2.6); Phosphorus 2.7 mg/dL (2.3-4.7)
[2020-01-27] MEDS ORDERED: Magnesium 2 GM/50 ML 2 GM in Premix Bag 1 BAG IVPB SCH (07:30)
[2020-01-27] MEDS ORDERED: Potassium Phosphate 30 MMOL in Sodium Chloride 0.9% 250 ML 250 ML IVPB SCH (07:30)
[2020-01-27 07:33] VITALS: BMI 21.6
[2020-01-27] MEDS ORDERED: FLU VACC QS2020-21(65YR UP)/PF 240 MCG/0.7 ML SYRINGE IM ONE (07:45)
--- NOTE | 2020-01-27 07:51 | CT ---
PRELIMINARY REPORT/[facility]/EMERGENCY AFTER HOURS PROCEDURE Receipt of this report by the clinical staff was confirmed with ROGELIO SANCHEZ MD by Daria Michel on Jan 27, 2020 01:22:00 CDT. Addendum electronically signed by Daria Michel on January 27, 2020 1:23:23 AM CDT EXAM: CT Head and Cervical Spine Without IV contrast. CLINICAL HISTORY: FOUND ON FLOOR TECHNIQUE: Axial computed tomography images were acquired of the head and the cervical spine without intravenous contrast. Sagittal and coronal reformatted images were obtained of the cervical spine. COMPARISON: None provided. FINDINGS: BRAIN: No acute intraparenchymal hemorrhage. No mass lesion. No CT evidence for acute territorial infarct. N o midline shift or extra-axial collection. Confluent periventricular hypoattenuation is most consistent with chronic microvascular ischemic changes. VENTRICLES No hydrocephalus. ORBITS Status post bilateral cataract surgery. SINUSES AND MASTOIDS The paranasal sinuses and mastoid air cells are clear. SOFT TISSUES Scattered foci of subcutaneous emphysema are appreciated within the right pressing department supervisor space. Scattere d foci of air are seen within the venous structures of the neck. No radiopaque foreign body is seen. BONES Subtle foci of emphysema are noted within the right carotid canal, within the right greater than left cavernous sinus, and at the posterior aspect of the orbit. No obvious displaced fracture is identified. DISKS/DEGENERATIVE CHANGES ACDF of C4-C5 without acute hardware complication. Advanced multilevel degenerative disc and facet/u ncovertebral disease of the cervical spine. OTHER: No apical pneumothorax. Smooth interlobular septal thickening. IMPRESSION: 1. Subtle foci of emphysema within the right carotid canal, within the right greater than left ivania nous sinus, and at the posterior aspect of the orbit. Additionally, scattered foci of subcutaneous emphysema are appreciated within the right pressing department supervisor space. While these foci of air may be iatrogen ic, particularly in the setting of scattered foci of air within the venous structures of the neck, cannot exclude a skull base injury and/or vascular injury. Recommend dedicated skull base imaging wi th the administration of intravenous contrast to evaluate the arterial system. 2. No acute cerebral findings. 3. Advanced multilevel degenerative disc and facet/uncovertebral disease of the cervical spine witho ut acute findings. 4. Pulmonary vascular congestion. ELECTRONICALLY SIGNED BY: Nir Velazquez MD Jan 27, 2020 1:03:14 AM CDT This report is intended for review by the ordering physician only, in accordance of law. If you recei ve this report in error, please call [facility] at [phone]. FINAL REPORT Emergent after hours noncontrast CT head HISTORY: Patient found lying on bathroom floor. Patient has not been eating. Stroke symptoms. COMPARISON: 07/23/2019. IMPRESSION: 1. No acute intracranial abnormalities demonstrated. 2. Mild chronic small vessel ischemic changes and cerebral volume loss. 3. 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 4. Punctate foci of gas are seen in the pressing department supervisor space on the right. Foci of gas are also seen in r egion of the right carotid canal and in the right cavernous sinuses. Findings are likely related to gas within the venous structures secondary to placement of a peripheral intravenous catheter. Majority of the findings are in agreement with preliminary report by [facility]. Transcribed Date/Time: 01/27/2020 9:29 AM
--- NOTE | 2020-01-27 07:59 | CT ---
PRELIMINARY REPORT/[facility]/EMERGENCY AFTER HOURS PROCEDURE Receipt of this report by the clinical staff was confirmed with ROGELIO SANCHEZ MD by Daria Michel on Jan 27, 2020 01:22:00 CDT. Addendum electronically signed by Daria Michel on January 27, 2020 1:23:23 AM CDT EXAM: CT Head and Cervical Spine Without IV contrast. CLINICAL HISTORY: FOUND ON FLOOR TECHNIQUE: Axial computed tomography images were acquired of the head and the cervical spine without intravenous contrast. Sagittal and coronal reformatted images were obtained of the cervical spine. COMPARISON: None provided. FINDINGS: BRAIN: No acute intraparenchymal hemorrhage. No mass lesion. No CT evidence for acute territorial infarct. N o midline shift or extra-axial collection. Confluent periventricular hypoattenuation is most consistent with chronic microvascular ischemic changes. VENTRICLES No hydrocephalus. ORBITS Status post bilateral cataract surgery. SINUSES AND MASTOIDS The paranasal sinuses and mastoid air cells are clear. SOFT TISSUES Scattered foci of subcutaneous emphysema are appreciated within the right call circuit worker space. Scattere d foci of air are seen within the venous structures of the neck. No radiopaque foreign body is seen. BONES Subtle foci of emphysema are noted within the right carotid canal, within the right greater than left cavernous sinus, and at the posterior aspect of the orbit. No obvious displaced fracture is identified. DISKS/DEGENERATIVE CHANGES ACDF of C4-C5 without acute hardware complication. Advanced multilevel degenerative disc and facet/u ncovertebral disease of the cervical spine. OTHER: No apical pneumothorax. Smooth interlobular septal thickening. IMPRESSION: 1. Subtle foci of emphysema within the right carotid canal, within the right greater than left ivania nous sinus, and at the posterior aspect of the orbit. Additionally, scattered foci of subcutaneous emphysema are appreciated within the right call circuit worker space. While these foci of air may be iatrogen ic, particularly in the setting of scattered foci of air within the venous structures of the neck, cannot exclude a skull base injury and/or vascular injury. Recommend dedicated skull base imaging wi th the administration of intravenous contrast to evaluate the arterial system. 2. No acute cerebral findings. 3. Advanced multilevel degenerative disc and facet/uncovertebral disease of the cervical spine witho ut acute findings. 4. Pulmonary vascular congestion. ELECTRONICALLY SIGNED BY: Nir Velazquez MD Jan 27, 2020 1:03:14 AM CDT This report is intended for review by the ordering physician only, in accordance of law. If you recei ve this report in error, please call [facility] at [phone]. FINAL REPORT Emergent after hours noncontrast CT cervical spine HISTORY: Stroke symptoms. Patient found lying on bathroom floor. TECHNIQUE: Contiguous axial CT images are obtained through the cervical spine from skull base to the level of th e T2 vertebral body. Sagittal and coronal reformatted images are provided. COMPARISON: 07/23/2019. IMPRESSION: 1. Postoperative and degenerative changes of the cervical spine which have not significantly progress ed when compared to the prior exam with multilevel neural foraminal narrowing with moderate and severe degrees of neural foraminal narrowing. Greatest degree of neural foraminal narrowing is seen on the left at the C4-5 level where there is severe left-sided neural foraminal narrowing due to excessive facet hypertrophic changes. 2. Laminectomy defect at C4-5 level. 3. No acute fracture or subluxation involving the cervical spine. 4. Scattered foci of gas within the neck which appears to be within venous structures. There are foci of gas seen in the region of the right carotid canal as well. Findings are likely related to gas within venous structures secondary to placement of a peripheral intravenous catheter. 5. Vascular calcifications. 6. 4 mm nodular density right upper lobe which is too small to characterize. There is mild interstiti al thickening which could be related to mild interstitial edema. Majority of the findings are in agreement with preliminary report by [facility]. Transcribed Date/Time: 01/27/2020 9:34 AM
--- NOTE | 2020-01-27 08:11 | RAD ---
PORTABLE CHEST: Date: 01/26/2020 HISTORY: Stroke. Patient found lying on bathroom floor. FINDINGS: Heart size is enlarged. Somewhat asymmetric right upper lobe parenchymal changes are seen. This could indicate an infiltrative process. Pulmonary vessels are mildly engorged, but no overt interstitial e ghassan. The patient is somewhat rotated. IMPRESSION: 1. Cardiomegaly. 2. There are some right upper lobe parenchymal changes, slightly asymmetric. Some of this is related to rotation, but could indicate infiltrate. POS: OFF
--- NOTE | 2020-01-27 08:22 | CT ---
PRELIMINARY REPORT/[facility]/EMERGENCY AFTER HOURS PROCEDURE Receipt of this report by the clinical staff was confirmed with ROGELIO SANCHEZ MD by Daria Michel on Jan 27, 2020 02:11:00 CDT. Addendum electronically signed by Daria Michel on January 27, 2020 2:13:06 AM CDT EXAM: CT Maxillofacial Without Intravenous Contrast. CLINICAL HISTORY: Called out for stroke lying on the bathroom floor took ambien and hydrocodone 64/38 initial pressure latest bp 113/72 daughter states she has not been eating or drinking. TECHNIQUE: Axial computed tomography images of the face without intravenous contrast. Sagittal and coronal refor mations performed. CONTRAST: Without COMPARISON: CT - CT CERVICAL SPINE WO CON - 01/27/2020 12:17 AM CDT FINDINGS/IMPRESSION: Emphysema is appreciated within the right cavernous sinus and at the posterior orbit with a small foc us of pneumocephalus adjacent to a nondisplaced fracture traversing the right carotid canal within the right sphenoid bone (axial series 3, image 28). The fracture extends through the right clinoid p rocess and likely exits out the sphenoid portion of the right posterior orbit. Redemonstrated subcutaneous emphysema within the right immigration coordinator space. Please refer to the same day CT angiogram of the head and neck for pertinent vascular findings. ELECTRONICALLY SIGNED BY: Nir Velazquez MD Jan 27, 2020 2:05:25 AM CDT This report is intended for review by the ordering physician only, in accordance of law. If you recei ve this report in error, please call [facility] at [phone]. FINAL REPORT Emergent after hours noncontrast CT facial bones HISTORY: Patient found lying on bathroom floor. Reported stroke. IMPRESSION: 1. No fracture involving the facial bones. 2. Postoperative and degenerative changes of visualized cervical spine. 3. Osteoarthritis bilateral temporomandibular joints. 4. Gas in the region of the right cavernous sinus with punctate foci of gas in the region of the mast icator space on the right. These findings are likely related to placement of a peripheral intravenous catheter and gas in the venous structures. The after hours report by [facility] men tions a skull base fracture through the clinoid. However, no definitive fracture is able to be delineated. There is no hemorrhage seen at the skull base, and the mastoid air cells are clear bilate rally. There is a curvilinear focus of increased density adjacent to the posterior clinoid, but this has the appearance most suggestive of a dural based calcification. Again no definitive skull bas e fracture is able to be delineated. Findings are in disagreement with the preliminary report by [facility]. This finding was discus sed with Bridget Marte, trauma surgery PA, on 01/27/2020 at 0912 hours. Transcribed Date/Time: 01/27/2020 11:50 AM
--- NOTE | 2020-01-27 08:51 | CT ---
PRELIMINARY REPORT/[facility]/EMERGENCY AFTER HOURS PROCEDURE EXAM: CTA Head and Neck with Intravenous Contrast. CLINICAL HISTORY: Called out for stroke lying on the bathroom floor took ambien and hydrocodone 64/38 initial pressure latest bp 113/72 daughter states she has not been eating or drinking. TECHNIQUE: Axial CTA images of the head and neck performed with intravenous contrast. Two-dimensional MIP and/or three-dimensional MIP and volume rendered reformations were performed. Note: Per PQRS, the description of internal carotid artery percent stenosis, including 0 percent or n ormal exam, is based on [place] Symptomatic Carotid Endarterectomy Trial (NASCET) criteria. CONTRAST: With; ISO 370 100ML COMPARISON: CT - CT FACIAL BONES WO - 01/27/2020 01:[address] - CT CERVICAL SPINE WO 01/27/2020 12:17 AM CDT FINDINGS: CTA NECK: COMMON CAROTID ARTERIES No significant stenosis. No dissection or occlusion. INTERNAL CAROTID ARTERIES No stenosis by NASCET criteria. No dissection or occlusion. VERTEBRAL ARTERIES No significant stenosis. No dissection or occlusion. CTA HEAD: ANTERIOR CEREBRAL ARTERIES No significant stenosis. No occlusion. No aneurysm. MIDDLE CEREBRAL ARTERIES No significant stenosis. No occlusion. No aneurysm. POSTERIOR CEREBRAL ARTERIES No significant stenosis. No occlusion. No aneurysm. BASILAR ARTERY No significant stenosis. No occlusion. No aneurysm. OTHER: SOFT TISSUES/BONES Please refer to same-day CT of the face for pertinent soft tissue and osseous findings. OTHER: Interlobular septal thickening at the lung apices with partial visualized groundglass opacities withi n the right upper lobe. IMPRESSION: 1. No acute intracranial or cervical arterial findings, particularly at the right internal carotid a rtery as queried. 2. Pulmonary vascular congestion with partially visualized groundglass opacities within the right up per lobe. Differential considerations include pulmonary edema, aspiration, pneumonia, or hemorrhage. 3. Please refer to same day CT of the face for pertinent soft tissue and osseous findings. ELECTRONICALLY SIGNED BY: Nir Velazquez MD Jan 27, 2020 2:12:30 AM CDT This report is intended for review by the ordering physician only, in accordance of law. If you recei ve this report in error, please call [facility] at [phone]. FINAL REPORT Emergent after hours CT angiogram head with IV contrast and 3-D reconstructions Emergent after hours CT angiogram neck with IV contrast and 3-D reconstructions HISTORY: EMS called out for stroke. Patient found lying on bathroom floor. Initial blood pressure demonstrated hypotension. IMPRESSION: 1. Origins of the great vessels were not imaged on this exam. 2. Patent bilateral internal carotid arteries. 2. Small but patent bilateral vertebral arteries. Patent right posterior communicating artery is pres ent with type origin of the left posterior cerebral artery. Posterior cerebral arteries are patent bilaterally. 4. Patent bilateral anterior cerebral and middle cerebral arteries. 5. Gas in the region of the cavernous sinus and adjacent to the most posterior aspect of the optic ca nal. As noted on CT facial bones, this is thought to most likely be secondary to gas within venous structures due to placement of a peripheral intravenous catheter. Gas in the solar installer space and in the region of the right carotid canal on prior CT cervical spine and CT head is no longer visualized. 6. Patchy parenchymal densities right upper lobe worrisome for infectious process. There is also inte rstitial thickening in the right upper lobe with nodular density right upper lobe measuring 4 mm which is difficult to further characterize. Interstitial thickening could be related to associated in terstitial edema or secondary to infectious process as well. Findings are in agreement with the preliminary report by [facility]. Transcribed Date/Time: 01/27/2020 9:44 AM
[2020-01-27] MEDS ORDERED: Famotidine 20 MG TAB PO SCH (09:00)
[2020-01-27] MEDS ORDERED: Non-Formulary Item 1 EACH (Amlodipine Besylate [Amlodipine Besylate] 2.5 MG Tablet) PO SCH (09:00)
[2020-01-27] MEDS ORDERED: Non-Formulary Item 1 EACH (Hydrochlorothiazide [Hydrochlorothiazide] 12.5 MG Tablet) PO SCH (09:00)
--- NOTE | 2020-01-27 09:29 | CON ---
DATE OF CONSULTATION: 01/27/2020 HISTORY OF PRESENT ILLNESS: Ms. Borrego is a 79-year-old female who was brought here by EMS due to a fall. The patient states that she did not fall, but she was playing with her grandchildren. Daughter reports that there were no children in the house. The patient did take Ambien and hydrocodone before going to bed. She states that she only fell twice this year, both of which she fell asleep on the commode. She tells me her last fall was 2 weeks ago and not last night. The patient currently uses a walker to ambulate. She denies any weakness in her extremities. She denies any blood thinners, fall, or bladder dysfunction. CT of the head and neck showed some air next to the masseter muscle, which is concern for basilar skull fracture. The CT max face suggest a skull fracture that goes into the carotid canal. CTA was unremarkable for any vessel injury. I believe that the Ambien-hydrocodone was responsible for her fall today. REVIEW OF SYSTEMS: CONSTITUTIONAL: Denies fever or chills. ENT: Denies change of vision or hearing. CARDIAC: Denies chest pain, shortness of breath, or diaphoresis. PULMONARY: Denies shortness of breath, cough, or hemoptysis. GI: Denies abdominal pain, nausea, vomiting, diarrhea, change in stool formation, and consistency. : Denies trouble with urination, frequency of urination, or bloody urine. SKIN: Denies skin rash, bruising, bleeding, or skin masses. MUSCULOSKELETAL: As per History of Present Illness. NEUROLOGIC: As per History of Present Illness. PSYCHOLOGICAL: As per History of Present Illness. PAST MEDICAL HISTORY: High cholesterol, hypertension, chronic low back pain, and arthritis. PAST SURGICAL HISTORY: Bilateral total knee replacements, 4 back surgeries, bilateral wrist surgeries, carpal tunnel, hysterectomy, tonsillectomy, and rotator repair. SOCIAL HISTORY: Former smoker, quit 10 years ago. The patient denies alcohol. The patient denies illicit drug use. MEDICATIONS: 1. Amlodipine 2.5 mg. 2. Hydrochlorothiazide 12.5 mg. 3. Duloxetine 60 mg. 4. Gabapentin 600 mg. 5. Meloxicam 15 mg. 6. Baclofen 10 mg. 7. Aspirin 81 mg. 8. Centrum Silver. 9. Caltrate with vitamin D3. 10. Biotin 69193 mcg. 11. Lotemax eye gel drops 0.5% strength. 12. Crestor 20 mg. 13. Hydrocodone. 14. VESIcare 10 mg. 15. Zolpidem 10 mg. ALLERGIES: NO KNOWN DRUG ALLERGIES. PHYSICAL EXAMINATION: VITAL SIGNS: Blood pressure 120/60, pulse 64, respiratory rate 18, and temperature 97.8. HEENT: Pupils are equal. Extraocular movements are intact. NECK: Soft, supple. No masses are noted. Range of motion is intact and nonpainful after taking C-collar off. NEUROLOGIC: Awake, alert, and oriented x3. Memory, attention, and fund of knowledge are normal. Cranial nerves grossly intact. Upper extremities, she has good bilateral strength in her deltoids, biceps, triceps, wrist extension, finger extension, finger intrinsics. Sensation equal bilaterally. Reflexes symmetric. Lower extremities, she has good strength in her bilateral iliopsoas, quadriceps, hamstrings, anterior tib, EHL, and gastrocnemius. There is no area of dermatomal sensory loss. The reflexes are symmetric. The toes are downgoing. IMAGING: CT of the head and neck, concerning for some air next to the masseter muscle, which is concerning for basilar skull fracture. CT max face shows skull fracture that goes to the carotid canal. CTA was unremarkable for any vessel injury. ASSESSMENT: 1. Primary fall. 2. Hypotension. 3. Skull fracture. PLAN: Supportive care. Images were reviewed with Dr Sanchez. He does not appreciate a skull fracture into the carotid canal. Air mostly was introduced into the vein. No surgical intervention at this time. We will transfer care to the service. Collar can be discontinued. No follow up required to our clinic. Job ID: [id number] [facility]
--- NOTE | 2020-01-27 09:53 | PRG ---
DATE OF SERVICE: 01/27/2020 I personally interviewed and examined the patient and agree with documentation of Jayson Zhao PA-C, dated 01/26/2020. Briefly, Rachel Borrego is a 79-year-old woman found on the floor of her living space. She has had some fitful nights in the past week with coughing and an episode of falling out of bed, but she does not remember any event striking her head yesterday. She had taken some sleep aids, however. Because she was found down, she was brought to the emergency department, where a CT examination of the brain revealed air in the cavernous sinus on the right side. A suspected skull base fracture was the reason for admission. She reports no neck discomfort. When I see her this morning, Ms. Borrego is wide awake and she answers questions. She has some signs of dementia with some tangential speech and some confusion, but she is quite clear that her neck hurts more in the collar than without it. She tells me she has absolutely no head pain. The IV in her left hand is the thing that hurts her the most. There have been no fevers recorded overnight. Blood pressures have been in the 130s to 160s. On examination, the cranial nerves are working well. There is good motor and sensory function in the upper and lower extremities. There is good alternating rapid motion. I do not find any new deficits other than the mild cognitive impairment. I reviewed CT scan from yesterday. I do not see a skull base fracture. I do not see a fracture through the carotid canal. I do not see a fracture in the cervical spine, but I do see some air in the cavernous sinus. This likely traveled from a peripheral vein through the heart up the jugular into the cavernous sinus from IV placement. Ms. Borrego is nontender and has full range of motion of her neck without any pain. The collar can come off. She has a negative CT scan of the head. Ms. Borrego can be discharged home when she proves she is safe for activities of daily living. (15 minutes). Job ID: [id number] [facility]
[2020-01-27] MEDS ORDERED: HYDROcodone/Acetaminophen 10/325 mg Tablet PO PRN (10:00)
[2020-01-27] MEDS ORDERED: Iopamidol-370 76% 500 ML 1 ML ONE (10:09)
[2020-01-27 11:42] LABS: SARS-CoV-2 MS2 Positive; SARS-CoV-2 N Gene Negative; SARS-CoV-2 S Gene Negative; SARS-CoV-2 by NAA Not Detected (NotDetected); SARS-CoV-2 orf1ab Negative
[2020-01-27 16:36] VITALS: BP 116/68; TEMP 98.2
[2020-01-27 16:41] LABS: Anion Gap 13 mmol/L (10-20); BUN (Urea Nitrogen) 13 mg/dL (9.8-20.1); Calc. Creatinine Clearance 55 mL/min (70-130); Calcium 8.8 mg/dL (7.8-10.44); Carbon Dioxide 26 mmol/L (23-31); Chloride 102 mmol/L (98-107); Estimated GFR-MDRD 72; Glucose 144 mg/dL (83-110); Potassium 4.3 mmol/L (3.5-5.1); Sodium 137 mmol/L (136-145)
[2020-01-27] MEDS ORDERED: Rosuvastatin 20 MG TAB PO SCH (21:00)
[2020-01-27] MEDS ORDERED: Trospium 20 MG TAB PO SCH (21:00)
[2020-01-27] MEDS ORDERED: Loteprednol Etabonate 0.5% Ophth Suspension 5 ml Bottle EA EYE SCH (21:00)
[2020-01-27] MEDS ORDERED: LOTEPREDNOL ETABONATE EA EYE SCH (21:00)
[2020-01-28] MEDS ORDERED: DULoxetine 60 MG CAP PO SCH (09:00)
[2020-01-28] MEDS ORDERED: Hydrochlorothiazide 25 MG TAB PO SCH (09:00)
[2020-01-28] MEDS ORDERED: Amlodipine 5 MG TAB PO SCH (09:00)
--- NOTE | 2020-01-28 10:51 | CT ---
PRELIMINARY REPORT/[facility]/EMERGENCY AFTER HOURS PROCEDURE EXAM: CTA Head and Neck with Intravenous Contrast. CLINICAL HISTORY: Called out for stroke lying on the bathroom floor took ambien and hydrocodone 64/38 initial pressure latest bp 113/72 daughter states she has not been eating or drinking. TECHNIQUE: Axial CTA images of the head and neck performed with intravenous contrast. Two-dimensional MIP and/or three-dimensional MIP and volume rendered reformations were performed. Note: Per PQRS, the description of internal carotid artery percent stenosis, including 0 percent or n ormal exam, is based on [place] Symptomatic Carotid Endarterectomy Trial (NASCET) criteria. CONTRAST: With; ISO 370 100ML COMPARISON: CT - CT FACIAL BONES WO - 01/27/2020 01:[address] - CT CERVICAL SPINE WO 01/27/2020 12:17 AM CDT FINDINGS: CTA NECK: COMMON CAROTID ARTERIES No significant stenosis. No dissection or occlusion. INTERNAL CAROTID ARTERIES No stenosis by NASCET criteria. No dissection or occlusion. VERTEBRAL ARTERIES No significant stenosis. No dissection or occlusion. CTA HEAD: ANTERIOR CEREBRAL ARTERIES No significant stenosis. No occlusion. No aneurysm. MIDDLE CEREBRAL ARTERIES No significant stenosis. No occlusion. No aneurysm. POSTERIOR CEREBRAL ARTERIES No significant stenosis. No occlusion. No aneurysm. BASILAR ARTERY No significant stenosis. No occlusion. No aneurysm. OTHER: SOFT TISSUES/BONES Please refer to same-day CT of the face for pertinent soft tissue and osseous findings. OTHER: Interlobular septal thickening at the lung apices with partial visualized groundglass opacities withi n the right upper lobe. IMPRESSION: 1. No acute intracranial or cervical arterial findings, particularly at the right internal carotid a rtery as queried. 2. Pulmonary vascular congestion with partially visualized groundglass opacities within the right up per lobe. Differential considerations include pulmonary edema, aspiration, pneumonia, or hemorrhage. 3. Please refer to same day CT of the face for pertinent soft tissue and osseous findings. ELECTRONICALLY SIGNED BY: Nir Velazquez MD Jan 27, 2020 2:12:30 AM CDT This report is intended for review by the ordering physician only, in accordance of law. If you recei ve this report in error, please call [facility] at [phone]. FINAL REPORT Emergent after hours CT angiogram head with IV contrast and 3-D reconstructions Emergent after hours CT angiogram neck with IV contrast and 3-D reconstructions HISTORY: EMS called out for stroke. Patient found lying on bathroom floor. Initial blood pressure demonstrated hypotension. IMPRESSION: 1. Origins of the great vessels were not imaged on this exam. 2. Patent bilateral internal carotid arteries. 2. Small but patent bilateral vertebral arteries. Patent right posterior communicating artery is pres ent with type origin of the left posterior cerebral artery. Posterior cerebral arteries are patent bilaterally. 4. Patent bilateral anterior cerebral and middle cerebral arteries. 5. Gas in the region of the cavernous sinus and adjacent to the most posterior aspect of the optic ca nal. As noted on CT facial bones, this is thought to most likely be secondary to gas within venous structures due to placement of a peripheral intravenous catheter. Gas in the personal lines insurance advisor space and in the region of the right carotid canal on prior CT cervical spine and CT head is no longer visualized. 6. Patchy parenchymal densities right upper lobe worrisome for infectious process. There is also inte rstitial thickening in the right upper lobe with nodular density right upper lobe measuring 4 mm which is difficult to further characterize. Interstitial thickening could be related to associated in terstitial edema or secondary to infectious process as well. Findings are in agreement with the preliminary report by [facility]. Transcribed Date/Time: 01/28/2020 10:51 AM
--- NOTE | 2020-01-30 09:02 | DIS ---
DATE OF ADMISSION: 01/27/2020 DATE OF DISCHARGE: 01/27/2020 ADMISSION DIAGNOSES: 1. Multiple recent falls. 2. Basilar skull fracture. DISCHARGE DIAGNOSIS: Multiple recent falls. CONSULTING PHYSICIAN: Dr. Sanchez of Neurosurgery. PROCEDURES: None. HOSPITAL COURSE: The patient is a 79-year-old female, who originally presented to the emergency department via EMS after falling in her bathroom. The patient reports that she got up to use the bathroom and slid down the wall. Also reports multiple recent falls over the past 2 weeks. The patient is taking [place] for chronic back pain as well as Ambien. Reports that her falls are in the nighttime usually when she gets up to go to the bathroom. CT evaluation demonstrated possible basilar skull fracture. The patient was admitted to the hospital. Upon review of CT scans in the morning by Dr. Sanchez and the morning radiologist, they both agreed that there was no basilar skull fracture and the air seen was likely from the venous system. The patient worked with Physical and Occupational Therapy and she was deemed safe to be discharged home to the care of her family. The patient does live home alone, but I did speak for a long time with the patient's daughter about the safety of the patient at home and the importance of removing rugs and trip hazards and placing additional handlebars in the bathroom and showing that the patient always has her alert button with her. The patient has a primary care physician and they plan to see him within the next week. Also recommended the patient follow up with her pain management physician who prescribes [place] and Ambien as the dosages are likely too high now and they can start to wean those. I recommended discontinue using the Ambien in the meantime and to try melatonin if she continues to have difficulty sleeping. The patient and the patient's daughter were in agreement and all questions were answered. At the time of discharge, the patient's pain is well controlled. She was tolerating a regular diet. Working with Physical and Occupational Therapy and deemed safe to go home. DISCHARGE DISPOSITION: Home. DISCHARGE CONDITION: Satisfactory. PHYSICAL EXAMINATION: VITAL SIGNS: Temperature 98.2, pulse 74, respirations 18, oxygen saturation 94% on room air, blood pressure 116/68. GENERAL: Well-appearing elderly female, sitting up in bed with no signs of acute distress. PULMONARY: Equal chest rise and fall. No signs of acute respiratory distress. NEUROLOGIC: GCS is 15. DISCHARGE INSTRUCTIONS: The patient was discharged home. Activity as tolerated. Regular diet. No PT needs. The patient has a walker and a cane at home. DISCHARGE MEDICATIONS: Include: 1. Amlodipine. 2. Cymbalta. 3. Hydrochlorothiazide. 4. [place]. 5. Lotemax eye drops. 6. Rosuvastatin. 7. VESIcare. 8. Aspirin. 9. Baclofen. 10. Biotin. 11. Ocuvite adult. 12. Caltrate. 13. Tums. 14. Gabapentin. 15. Krill oil. 16. Meloxicam. 17. Centrum Silver. 18. MiraLAX. FOLLOWUP APPOINTMENTS: The patient is to follow up with her PCP in the next 7 to 10 days. No followup is needed with Dr. Wilkins or Dr. Sanchez. This patient was seen and evaluated by myself on the day of discharge. This is merely a summary of the patient's hospitalization. For full details, please see her medical record in its entirety. Job ID: [id number]
== END 2020-01-27 17:48 | disposition home or self-care (01) | DRG 316 ==
LOC: ERS 23:08 → SURG B 01-27 03:32
PROVIDERS: ADMIT Surgery; ATTEND Surgery
DX: I95.9 Hypotension, unspecified (principal); I10 Essential (primary) hypertension; E78.00 Pure hypercholesterolemia, unspecified; F32.9 Major depressive disorder, single episode, unspecified; M19.90 Unspecified osteoarthritis, unspecified site; Z20.828 Contact with and (suspected) exposure to other viral communicable diseases; W01.0XXA Fall on same level from slipping, tripping and stumbling without subsequent striking against object, initial encounter; Z96.653 Presence of artificial knee joint, bilateral; Z90.710 Acquired absence of both cervix and uterus; Z90.49 Acquired absence of other specified parts of digestive tract; Z87.891 Personal history of nicotine dependence; Z79.82 Long term (current) use of aspirin; Z79.899 Other long term (current) drug therapy
CPT/HCPCS: 36415; 70450; 70486; 70496; 70498; 71045; 72125; 80053; 81003; 83735; 84100; 84484; 85025; 87635; 93005; G0390; J0690; J0696; J3475; J7050; Q9967; U0003

== ENCOUNTER 2020-12-11 19:28 | Inpatient (IN) | payer MEDICARE ==
[2020-12-11] MEDS ORDERED: Morphine 4 MG/ML VIAL ONE (19:44)
[2020-12-11] MEDS ORDERED: Dextrose 5% in Water 1,000 ML IV PRN (22:12)
[2020-12-11] MEDS ORDERED: Ondansetron PF 4 MG/2 ML Vial IVP PRN (22:12)
[2020-12-11] MEDS ORDERED: Dextrose 50% Abboject 50 ML SYRINGE SLOW IVP PRN (22:12)
[2020-12-11] MEDS ORDERED: hydrALAZINE 20 MG/ML VIAL SLOW IVP PRN (22:12)
[2020-12-11] MEDS ORDERED: Ibuprofen 800 MG TAB PO PRN (22:19)
[2020-12-11] MEDS ORDERED: Cyclobenzaprine 10 MG TAB PO PRN (22:19)
[2020-12-11] MEDS ORDERED: traMADol HCl 50 MG TAB PO PRN (22:22)
[2020-12-11] MEDS ORDERED: traMADol HCl 50 MG TAB ONE (23:35)
[2020-12-11] MEDS ORDERED: Cyclobenzaprine 10 MG TAB ONE (23:36)
[2020-12-11] MEDS ORDERED: Acetaminophen 500 MG TAB ONE (23:36)
[2020-12-11] MEDS: Acetaminophen 500 MG TAB PO SCH (23:49)
[2020-12-11] MEDS: traMADol HCl 50 MG TAB PO PRN (23:51)
[2020-12-12 00:58] VITALS: BMI 24.0
[2020-12-12] MEDS: Acetaminophen 500 MG TAB PO SCH ×3 (05:28→19:58)
[2020-12-12] MEDS: traMADol HCl 50 MG TAB PO PRN (05:29)
[2020-12-12] MEDS ORDERED: Calcium Carbonate 500 MG ChewTAB PO PRN (07:42)
[2020-12-12] MEDS ORDERED: Gabapentin 300 MG CAP PO SCH (09:00)
[2020-12-12] MEDS: Gabapentin 300 MG CAP PO SCH ×3 (09:24→20:40)
[2020-12-12] MEDS: Bupropion 150 MG SR TAB PO SCH (09:26)
[2020-12-12] MEDS: HYDROcodone/Acetaminophen 10/325 mg Tablet PO PRN ×3 (09:27→20:41)
[2020-12-12] MEDS: Senokot S 8.6-50 MG TAB PO SCH ×2 (09:27→20:40)
[2020-12-12] MEDS: Famotidine 20 MG TAB PO SCH ×2 (09:28→20:40)
[2020-12-12] MEDS: Hydrochlorothiazide 25 MG TAB PO SCH (09:29)
[2020-12-12] MEDS: Amlodipine 5 MG TAB PO SCH (09:29)
[2020-12-12] MEDS: DULoxetine 60 MG CAP PO SCH (09:29)
[2020-12-12] MEDS: Meloxicam 7.5 MG TAB PO SCH (09:30)
[2020-12-12] MEDS: Loteprednol Etabonate 0.5% Ophth Suspension 5 ml Bottle EA EYE SCH ×2 (09:38→23:28)
[2020-12-12] MEDS: Trospium 20 MG TAB PO SCH ×2 (10:00→20:41)
[2020-12-12] MEDS: Polyethylene Glycol 3350 17 GM Packet PO SCH (10:03)
[2020-12-12] MEDS: Cyclobenzaprine 10 MG TAB PO PRN ×2 (14:49→18:07)
[2020-12-12] MEDS: Acetaminophen 325 MG TAB PO SCH (20:39)
[2020-12-12] MEDS: Rosuvastatin 20 MG TAB PO SCH (20:41)
[2020-12-12] MEDS: Melatonin 3 MG TAB PO SCH (20:41)
[2020-12-13] MEDS: Acetaminophen 325 MG TAB PO SCH ×4 (01:37→20:51)
[2020-12-13 05:20] LABS: #Basophils 0.1 thou/uL (0.0-0.2); #Eosinphils 0.2 thou/uL (0.0-0.7); #Lymphocytes 2.3 thou/uL (1.20-3.40); #Monocytes 0.4 thou/uL (0.11-0.59); #Neutrophils 3.6 thou/uL (1.40-6.50); %Basophils 1.3 % (0.0-1.0); %Eosinophils 3.3 % (0.0-10.0); %Monocytes 6.6 % (0.0-10.0); %Neutrophils 54.9 % (42.0-75.0); Hemoglobin 14.4 g/dL (12.0-16.0); Mean Corpuscular HGB CONC 32.7 g/dL (32.0-36.0); Mean Corpuscular Hemoglobin 30.3 pg (27.0-31.0); Mean Corpuscular Volume 92.5 fL (78.0-98.0); Platelet Count 163 thou/uL (130-400); RBC Distribution Width 12.1 % (11.5-14.5); Red Blood Cell (RBC) Count 4.75 mill/uL (4.20-5.40); White Blood Cell (WBC) Count 6.6 thou/uL (4.8-10.8)
[2020-12-13 05:40] LABS: Anion Gap 12 mmol/L (10-20); BUN (Urea Nitrogen) 11 mg/dL (9.8-20.1); Calc. Creatinine Clearance 55 mL/min (70-130); Calcium 9.4 mg/dL (7.8-10.44); Carbon Dioxide 31 mmol/L (23-31); Chloride 100 mmol/L (98-107); Glucose 96 mg/dL (83-110); Magnesium 2.1 mg/dL (1.6-2.6); Phosphorus 3.4 mg/dL (2.3-4.7); Potassium 3.7 mmol/L (3.5-5.1); Sodium 139 mmol/L (136-145)
[2020-12-13] MEDS: Gabapentin 300 MG CAP PO SCH ×3 (09:18→20:51)
[2020-12-13] MEDS: Meloxicam 7.5 MG TAB PO SCH (09:18)
[2020-12-13] MEDS: Hydrochlorothiazide 25 MG TAB PO SCH (09:20)
[2020-12-13] MEDS: Senokot S 8.6-50 MG TAB PO SCH ×2 (09:20→20:50)
[2020-12-13] MEDS: Baclofen 10 MG TAB PO SCH ×2 (09:20→20:51)
[2020-12-13] MEDS: HYDROcodone/Acetaminophen 10/325 mg Tablet PO PRN (09:21)
[2020-12-13] MEDS: Famotidine 20 MG TAB PO SCH ×2 (09:21→20:50)
[2020-12-13] MEDS: Amlodipine 5 MG TAB PO SCH (09:21)
[2020-12-13] MEDS: Loteprednol Etabonate 0.5% Ophth Suspension 5 ml Bottle EA EYE SCH ×2 (09:23→20:52)
[2020-12-13] MEDS: Trospium 20 MG TAB PO SCH ×2 (09:25→20:50)
[2020-12-13] MEDS: Polyethylene Glycol 3350 17 GM Packet PO SCH (09:25)
[2020-12-13] MEDS: DULoxetine 60 MG CAP PO SCH (09:32)
[2020-12-13] MEDS: Bupropion 150 MG SR TAB PO SCH (09:33)
[2020-12-13] MEDS: HYDROcodone/Acetaminophen 5/325 mg Tablet PO PRN ×2 (15:11→20:51)
[2020-12-13] MEDS: Melatonin 3 MG TAB PO SCH (20:50)
[2020-12-13] MEDS: Enoxaparin Sodium 40 MG/0.4 ML SYRINGE SC SCH (20:50)
[2020-12-13] MEDS: Rosuvastatin 20 MG TAB PO SCH (20:50)
[2020-12-14] MEDS: Acetaminophen 325 MG TAB PO SCH ×4 (00:04→18:34)
[2020-12-14] MEDS: Amlodipine 5 MG TAB PO SCH (10:05)
[2020-12-14] MEDS: HYDROcodone/Acetaminophen 5/325 mg Tablet PO PRN (10:06)
[2020-12-14] MEDS: Gabapentin 300 MG CAP PO SCH ×3 (10:08→21:03)
[2020-12-14] MEDS: Baclofen 10 MG TAB PO SCH ×2 (10:10→22:30)
[2020-12-14] MEDS: Senokot S 8.6-50 MG TAB PO SCH ×2 (10:10→21:22)
[2020-12-14] MEDS: Meloxicam 7.5 MG TAB PO SCH (10:11)
[2020-12-14] MEDS: Hydrochlorothiazide 25 MG TAB PO SCH (10:13)
[2020-12-14] MEDS: Famotidine 20 MG TAB PO SCH ×2 (10:14→21:04)
[2020-12-14] MEDS: DULoxetine 60 MG CAP PO SCH (10:14)
[2020-12-14] MEDS: Loteprednol Etabonate 0.5% Ophth Suspension 5 ml Bottle EA EYE SCH ×2 (10:15→21:22)
[2020-12-14] MEDS: Polyethylene Glycol 3350 17 GM Packet PO SCH (10:15)
[2020-12-14] MEDS: Trospium 20 MG TAB PO SCH ×2 (10:21→22:30)
[2020-12-14] MEDS: Bupropion 150 MG SR TAB PO SCH (10:22)
[2020-12-14] MEDS: HYDROcodone/Acetaminophen 10/325 mg Tablet PO PRN (21:03)
[2020-12-14] MEDS: Rosuvastatin 20 MG TAB PO SCH (21:03)
[2020-12-14] MEDS: Enoxaparin Sodium 40 MG/0.4 ML SYRINGE SC SCH (21:04)
[2020-12-14] MEDS: Melatonin 3 MG TAB PO SCH (21:04)
[2020-12-15] MEDS: Acetaminophen 325 MG TAB PO SCH ×2 (00:31→06:36)
[2020-12-15 08:31] VITALS: TEMP 98.4
[2020-12-15] MEDS: DULoxetine 60 MG CAP PO SCH (09:24)
[2020-12-15] MEDS: Bupropion 150 MG SR TAB PO SCH (09:24)
[2020-12-15] MEDS: Meloxicam 7.5 MG TAB PO SCH (09:24)
[2020-12-15] MEDS: Famotidine 20 MG TAB PO SCH (09:26)
[2020-12-15] MEDS: Baclofen 10 MG TAB PO SCH (09:26)
[2020-12-15] MEDS: Gabapentin 300 MG CAP PO SCH ×2 (09:27→15:42)
[2020-12-15] MEDS: Amlodipine 5 MG TAB PO SCH (09:27)
[2020-12-15] MEDS: Hydrochlorothiazide 25 MG TAB PO SCH (09:28)
[2020-12-15] MEDS: Senokot S 8.6-50 MG TAB PO SCH (09:28)
[2020-12-15] MEDS: Polyethylene Glycol 3350 17 GM Packet PO SCH (09:29)
[2020-12-15] MEDS: Trospium 20 MG TAB PO SCH (09:29)
[2020-12-15] MEDS: Loteprednol Etabonate 0.5% Ophth Suspension 5 ml Bottle EA EYE SCH (09:30)
[2020-12-15] MEDS: HYDROcodone/Acetaminophen 10/325 mg Tablet PO PRN ×2 (09:37→15:43)
[2020-12-15] MEDS ORDERED: Acetaminophen 325 MG TAB PO SCH (12:00)
[2020-12-15 16:14] VITALS: BP 121/79
== END 2020-12-15 17:15 | disposition swing bed (61) | DRG 552 ==
LOC: ERS 19:28 → ERHOLD 22:12 → SURG A 12-12 02:56
PROVIDERS: ADMIT Surgery; ATTEND Surgery
DX: S12.000A Unspecified displaced fracture of first cervical vertebra, initial encounter for closed fracture (principal); W18.12XA Fall from or off toilet with subsequent striking against object, initial encounter; Z20.822 Contact with and (suspected) exposure to COVID-19; I10 Essential (primary) hypertension; E78.5 Hyperlipidemia, unspecified; E78.00 Pure hypercholesterolemia, unspecified; G89.29 Other chronic pain; M19.90 Unspecified osteoarthritis, unspecified site; Z96.653 Presence of artificial knee joint, bilateral; F32.9 Major depressive disorder, single episode, unspecified; G47.00 Insomnia, unspecified; Y92.002 Bathroom of unspecified non-institutional (private) residence as the place of occurrence of the external cause; Z90.710 Acquired absence of both cervix and uterus; Z79.82 Long term (current) use of aspirin; Z79.899 Other long term (current) drug therapy
CPT/HCPCS: 36415; 80048; 83735; 84100; 85025; 96374; G0390; J1650; J2270; J2405

== ENCOUNTER 2021-02-12 12:02 | Emergency (ER) | payer MEDICARE, OTHER ==
[2021-02-12] MEDS ORDERED: Lorazepam 1 MG TAB ONE (12:57)
== END 2021-02-12 16:22 | disposition home or self-care (01) ==
LOC: ERS 12:02
DX: S12.03 Posterior arch fracture of first cervical vertebra (principal); S12.030A Displaced posterior arch fracture of first cervical vertebra, initial encounter for closed fracture; E78.5 Hyperlipidemia, unspecified; E78.00 Pure hypercholesterolemia, unspecified; E78.1 Pure hyperglyceridemia; I10 Essential (primary) hypertension; M19.90 Unspecified osteoarthritis, unspecified site; Z87.891 Personal history of nicotine dependence; Z79.899 Other long term (current) drug therapy; Z79.82 Long term (current) use of aspirin; W18.30XD Fall on same level, unspecified, subsequent encounter
CPT/HCPCS: 72141